=== PATIENT | female | born 1995 | race Caucasian/White ===

== ENCOUNTER 2016-05-18 15:57 | Inpatient (IN) | payer BC, SELFPAY ==
[~2016-05-18] VITALS: Ht 157.5 cm; Wt 66.3 kg
[~2016-05-18 15:57] MED LIST: ALBU17IN INH; HYDR25T PO; LAMI25TA PO; TRAZ25TA PO; ZOLO25TA PO
[2016-05-18 16:45] LABS: MEAN CORPUSCULAR HEMOGLOBIN 30.9 pg (27.0-33.0); MEAN CORPUSCULAR HGB CONC 34.7 g/dl (32.0-36.5); MEAN CORPUSCULAR VOLUME 89.1 fl (80.0-96.0); RED CELL DISTRIBUTION WIDTH 12.5 % (11.5-14.5); WHITE BLOOD COUNT 6.7 K/mm3 (4.0-10.0)
[2016-05-18 16:58] LABS: CONTROL LINE INT CTR LINE PRESENT; METHADONE URINE NEGATIVE (NEGATIVE); TRICYCLIC ANTIDEPRESS URINE NEGATIVE (NEGATIVE)
[2016-05-18 17:02] LABS: CONTROL LINE HCG INT CTR LINE PRESENT
[2016-05-18 17:17] LABS: ALBUMIN 4.1 GM/DL (3.2-5.2); ALBUMIN/GLOBULIN RATIO 1.37 (1.00-1.93); ALKALINE PHOSPHATASE 64 U/L (45-117); ALT/SGPT 19 U/L (12-78); ANION GAP 12 MEQ/L (8-16); AST/SGOT 16 U/L (15-37); BILIRUBIN,DIRECT 0.3 MG/DL (0.0-0.2); BILIRUBIN,TOTAL 1.3 MG/DL (0.2-1.0); BLOOD UREA NITROGEN 11 MG/DL (7-18); CALCIUM LEVEL 8.7 MG/DL (8.5-10.1); CARBON DIOXIDE LEVEL 20 MEQ/L (21-32); CHLORIDE LEVEL 109 MEQ/L (98-107); CREATININE FOR GFR 0.71 MG/DL (0.55-1.02); GLOMERULAR FILTRATION RATE > 60.0 (>60); GLUCOSE, FASTING 91 MG/DL (70-105); POTASSIUM SERUM 3.6 MEQ/L (3.5-5.1); SODIUM LEVEL 141 MEQ/L (136-145); TOTAL PROTEIN 7.1 GM/DL (6.4-8.2)
[2016-05-18] MEDS ORDERED: LEXA5TAB13 PO (19:42)
[2016-05-18] MEDS ORDERED: LAMI25TA PO (19:42)
[2016-05-18] MEDS ORDERED: LAMI1TAB7 PO (19:42)
[2016-05-18] MEDS ORDERED: REME15TA PO (19:42)
--- NOTE | 2016-05-18 19:51 | EDDOCDS ---
Nurse's Notes [facility] Name: Aisha De Leon Age: 20 yrs Sex: Female : 1995 Arrival Date: 05/18/2016 Time: 15:[address] MD: Kasey Desai Diagnosis: Bipolar disorder, current episode depressed, moderate;Suicidal ideations;Patient's noncompliance with medical treatment and regimen;Other stimulant abuse;Opioid abuse;Cannabis abuse Presentation: 05/18 16:02 Presenting complaint: Patient states: patt been crying constantly and been in bed for 4 srm days. body physically exhausted. admits to SI but no plan. Mental Health Triage Level: Level 2:. Adult Sepsis Screening: The patient does not have new or worsening altered mentation. Patient's respiratory rate is less than 22. Systolic blood pressure is greater than 100. Patient has a qSOFA score of 0- Negative Sepsis Screen. Suicide/Homicide risk assessment- The patient admits to and/or has been reported to be having suicidal ideations. The patient reports that he/she has not been admitted to an inpatient mental health facility in the last 30 days. The patient reports that he/she has a recent or current history of substance abuse. The patient reports that he/she has a prior history of suicide attempt and/or organized plan. The patient reports that he/she has experienced a significant life altering event in the last 30 days. The patient reports that he/she has adequate social support. Status: Patient is not a fiscal services manager or dependent. Transition of care: patient was not received from another setting of care. 16:02 Acuity: MORENA Level 3 srm 16:02 Method Of Arrival: Walkin/Carried/Asstd srm Triage Assessment: 16:07 General: Appears in no apparent distress, Behavior is appropriate for age, cooperative. srm Pain: Pain currently is 0 out of 10 on a pain scale. HIV screening NA for this visit Offered previously. 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 Lamictal 50mg in am and 100 mg at hs Oral TChD 2 times per day 2. albuterol sulfate 90 mcg/actuation Inhl aepb prn - PMHx: Asthma; Depression; biploar; - PSHx: plastic surgery to correct facial laceration; Tonsillectomy; Adenoidectomy; - The history from nurses notes was reviewed: and I agree with what is documented. - Social history: Smoking status: Patient uses tobacco products, current every day smoker. No barriers to communication noted, The patient speaks fluent [place], Speaks appropriately for age. - Family history: Not pertinent. - : The pt / caregiver states he / she is not on anticoagulants. Home medication list is obtained from the patient. - Hospitalizations: : No recent hospitalization is reported. - Exposure Risk Screening:: None identified. - Immunization history:: All immunizations up-to-date. - Social history:: the patient smokes cigarettes the patient drinks alcohol, including recently. Screenin:47 Screening information is obtained from the patient. Fall risk: No risks identified. mk4 Assistance ADL's: requires no assistance with activities of daily living. Abuse/DV Screen: The patient / caregiver reports he/she is: not in a situation that causes fear, pain or injury. Nutritional screening: No deficits noted. Advance Directives: Currently, there is no health care proxy. There is no active DNR order. There is no living will. There is no Power of Kerrick Kleaner Operator. Advance directive information has not previously been placed in an [facility] medical record. Further advance directive information is declined. home support is adequate. Assessment: 16:16 General: Appears in no apparent distress, Behavior is cooperative, pleasant, family mk4 members in room with pt , laughing and joking. 17:20 General: Appears in no apparent distress, Behavior is cooperative, friends in room with mk4 pt, laughing and joking in NAD. 18:47 General: Appears in no apparent distress, comfortable, Behavior is cooperative. mk4 General: dinner tray given. Pain: Denies pain. Neurological: Level of Consciousness is awake, alert. Respiratory: Airway is patent Respiratory effort is even, unlabored, Respiratory pattern is regular, Breath sounds are clear bilaterally. 19:48 Reassessment: Patient appears in no apparent distress at this time. Patient denies pain rw1 at this time. Mental Health Eval: 17:59 Mental health consult is initiated at 17:45. Status: The patient is not a fiscal services manager or dependent. [facility] Behavioral Health: The patient is not an established patient of [facility] Behavioral Health. Referral Information: Evaluation referral is generated by a relative; Cousin; Tee Frazier The patient was referred for evaluation because Pt presented to ED after +SI by smashing her car. Pt stated Quit her job (at [employer]) 2 weeks ago and lost her insurance. Pt missed her apt in Apr for medication refill. Pt reported in bed for the last 3 days, "crying hysterically for no reason", "Entire body is so exhausted". according to Pt, had an argument with BF today, left the house, feeling trapped. Thought of smashing her car as a SI attempt, but went to Cousin's house instead. Cousin brought Pt to [facility]. Cousin has Pt's car. Pt reported hx of cutting, stated has not cut since high school. Pt stated sleeps all the time, has lost interest in life, and continues to think +SI.. Subjective: The patients chief complaint is +SI with plan to smash car. . Delusions are denied. Patient's mood is dysphoric, hopeless, Hallucinations are denied. Mental Health history: anxiety, depression, suicide attempt by overdose, 10/2015 Mental Health Admissions: [facility], 10/2015, overdose Current Outpatient Mental Health Services: Psychiatrist / Agency: Janeen JENSEN for medication management. Missed last apt in April, has not rescheduled do to no insurance currently. . Therapist / Agency: Usha JENSEN, last seen in Mar 2016.. Current living environment is The patient currently lives with his / her significant other, of 3 years, and 2y/o Son.(currently with Grandparents).. Patient presents to Emergency Department with the following symptoms within the past 2 weeks: anxiety, depressed mood, drug abuse, feelings of helplessness/hopelessness, labile mood, poor impulse control, sleep disturbance - excessive sleeping, suicidal ideation with plan for motor vehicle crash. Substance abuse: Patient uses marijuana as needed to relax Patient uses opiates Frequency of use: as needed to relax. Mental status exam: Patients appearance is disheveled Patient's behavior is cooperative, minimally responsive Speech is slow. Affect is flat. Mood is dysphoric. Hallucinations are denied. Appetite is poor. Memory is good. Energy level is lethargic. Content of thought is depressive. , Thought process is characterized by flight of ideas. Cognitive level is oriented to person, place, time and situation Patient's insight is poor. Judgement is poor. Rapport with interviewer is good. Suicidal Ideation present with a plan to kill self by motor vehicle crash. Homicidal ideation is not present. Disposition: Medically cleared for disposition by Gio León MD. 18:26 Pt states preferred pharmacy is: [facility]. rb 18:55 Disposition: Psychiatric Consult is performed by phone with Dr Christopher Kimble. [facility] rb Admission Criteria: The patient is experiencing suicidal ideation. The patient displays symptoms of severe psychiatric disorder resulting in disordered behavior and significant interference with his / her ability to maintain self care. Severe Anxiety. Psychomotor Retardation. The patient requires continuous observation and/or control to protect self, others or property. The patient requires administration and monitoring of psychoactive medications by skilled medical providers due to the side effects of the psychoactive medications or significant dosage adjustments. Legal Status: Patient's legal status will be Emergency admission: . 19:28 Awaiting: transfer to [facility]. ms 19:33 Insurance Pre-Certification: Pt. reports she does not have insurance.. ms Vital Signs: 15:59 BP 129 / 76; Pulse 122; Resp 18 S; Temp 96.5(O); Pulse Ox 99% on R/A; Weight 62.6 kg gr2 (R); Height 5 ft. 2 in. (157.48 cm) (R); Pain 0/10; 18:50 BP 142 / 77; Pulse 86; Resp 18; Temp 97.0(T); Pulse Ox 99% on R/A; dpm 19:48 BP 114 / 71; Pulse 88; Resp 16; Temp 96.9(T); Pulse Ox 98% on R/A; Pain 0/10; rw1 15:59 Body Mass Index 25.24 (62.60 kg, 157.48 cm) gr2 Vitals: 15:59 Log In Time: May 18, 2016 at 15:59. RN notified that patient meets Red Flag gr2 criteria. ED Course: 15:58 Patient visited by Mayra Dunlap. gr2 15:58 Kasey Desai is Private Physician. gr2 15:58 Patient moved to Waiting gr2 16:01 Patient visited by Mayra Dunlap. gr2 16:03 Triage Initiated srm 16:08 Lang Yan, EVE is Primary Nurse. dpm 16:08 Patient moved to [facility] dpm 16:12 Gio León MD is Attending Physician. pc 16:24 Patient visited by Ehsan Nunez. dpm 16:25 Pt greeted and oriented to ED. Patient advised of names of staff involved in care, dpm location of call gaviria, wait times and NPO status. Patient has correct armband on for positive identification. Placed in gown. Placed in psych safe attire. Security observing. Property removed, inventory done, secured in belongings bag- placed in locked locker. Placed in locker 2. Ann Marie (RN) observed pt while changing. Psych Safety Check: Location: Psych Room. Visual Assessment: Cooperative. 16:35 Patient visited by Gio León MD. pc 16:37 Acetaminophen Level Sent. jam1 16:38 Basic Metabolic Profile Sent. jam1 16:38 Complete Blood Count Sent. jam1 16:38 Drug Eval Toxicology ED Only Sent. jam1 16:38 Ethyl Alcohol (ethanol) Sent. jam1 16:38 HCG,Serum Qualitative Sent. jam1 16:38 Liver Profile Sent. jam1 16:38 Salicylate Level Sent. jam1 16:46 [facility] Agreement was scanned into [facility] and attached to record. ks16 16:49 Patient visited by Ehsan Nunez. dpm 17:19 Patient visited by Ehsan Nunez. dpm 17:38 Patient visited by Ehsan Nunez. dpm 17:52 Patient visited by Ehsan Nunez. dpm 18:15 Patient visited by Ehsan Nunez. dpm 18:31 Patient visited by Ehsan Nunez. dpm 18:46 Patient visited by Ehsan Nunez. dpm 18:47 The patient / caregiver is instructed regarding the plan of care and ED course. mk4 18:47 No IV's were initiated during this patient's visit. No IV's were initiated during this mk4 patient's visit. No procedures done that require assistance. 18:54 Christopher Kimble is Hospitalizing Provider. pc 19:07 Patient visited by Ehsan Nunez. dpm 19:21 [facility] Legal paperwork was scanned into [facility] and attached to record. jl 19:27 Psych Safety Check: Location: Psych Room. Visual Assessment: Cooperative. tmm1 19:28 Patient visited by Jimena Garcia PCA. tmm1 19:47 Patient visited by Jimena Garcia PCA. tmm1 19:47 Psych Safety Check: Location: Psych Room. Visual Assessment: Cooperative. tmm1 Attachments: 19:21 [facility] Legal paperwork jl Order Results: Lab Order: Acetaminophen Level; SPEC'M 05/18/16 16:33 Test: ACETAMINOPHEN LEVEL; Value: < 2.0; Range: 10.0-30.0; Abnormal: Below low normal; Units: UG/ML; Status: F Lab Order: Basic Metabolic Profile; SPEC'M 05/18/16 16:33 Test: GLUCOSE, FASTING; Value: 91; Range: 70-105; Units: MG/DL; Status: F Test: BLOOD UREA NITROGEN; Value: 11; Range: 7-18; Units: MG/DL; Status: F Test: CREATININE FOR GFR; Value: 0.71; Range: 0.55-1.02; Units: MG/DL; Status: F Test: SODIUM LEVEL; Range: 136-145; Units: MEQ/L; Status: I Test: POTASSIUM SERUM; Range: 3.5-5.1; Units: MEQ/L; Status: I Test: CHLORIDE LEVEL; Range: 98-107; Units: MEQ/L; Status: I Test: CARBON DIOXIDE LEVEL; Range: 21-32; Units: MEQ/L; Status: I Test: ANION GAP; Range: 8-16; Units: MEQ/L; Status: I Test: CALCIUM LEVEL; Range: 8.5-10.1; Units: MG/DL; Status: I Test: GLOMERULAR FILTRATION RATE; Value: > 60.0; Range: >60; Status: F Test: SODIUM LEVEL; Value: 141; Range: 136-145; Units: MEQ/L; Status: F Test: POTASSIUM SERUM; Value: 3.6; Range: 3.5-5.1; Units: MEQ/L; Status: F Test: CHLORIDE LEVEL; Value: 109; Range: 98-107; Abnormal: Above high normal; Units: MEQ/L; Status: F Test: CARBON DIOXIDE LEVEL; Value: 20; Range: 21-32; Abnormal: Below low normal; Units: MEQ/L; Status: F Test: ANION GAP; Value: 12; Range: 8-16; Units: MEQ/L; Status: F Test: CALCIUM LEVEL; Value: 8.7; Range: 8.5-10.1; Units: MG/DL; Status: F Test Note: ; Units are mL/min/1.73 m2 Chronic Kidney Disease Staging per NKF: Stage I & II GFR >=60 Normal to Mildly Decreased Stage III GFR 30-59 Moderately Decreased Stage IV GFR 15-29 Severely Decreased Stage V GFR <15 Very Little GFR Left ESRD GFR <15 on SCHOOL PHOTOGRAPHER Lab Order: Complete Blood Count; SPEC'M 05/18/16 16:33 Test: WHITE BLOOD COUNT; Value: 6.7; Range: 4.0-10.0; Units: K/mm3; Status: F Test: RED BLOOD COUNT; Value: 4.82; Range: 4.00-5.40; Units: M/mm3; Status: F Test: HEMOGLOBIN; Value: 14.9; Range: 12.0-16.0; Units: g/dl; Status: F Test: HEMATOCRIT; Value: 43.0; Range: 36.0-47.0; Units: %; Status: F Test: MEAN CORPUSCULAR VOLUME; Value: 89.1; Range: 80.0-96.0; Units: fl; Status: F Test: MEAN CORPUSCULAR HEMOGLOBIN; Value: 30.9; Range: 27.0-33.0; Units: pg; Status: F Test: MEAN CORPUSCULAR HGB CONC; Value: 34.7; Range: 32.0-36.5; Units: g/dl; Status: F Test: RED CELL DISTRIBUTION WIDTH; Value: 12.5; Range: 11.5-14.5; Units: %; Status: F Test: PLATELET COUNT, AUTOMATED; Value: 321; Range: 150-450; Units: k/mm3; Status: F Lab Order: Drug Eval Toxicology ED Only; SPEC'M 05/18/16 16:29 Test: AMPHETAMINES LEVEL URINE; Value: POSITIVE; Range: NEGATIVE; Abnormal: Above high normal; Status: F Test: BARBITURATES URINE; Value: NEGATIVE; Range: NEGATIVE; Status: F Test: BENZODIAZEPINES URINE; Value: NEGATIVE; Range: NEGATIVE; Status: F Test: CANNABINOIDS URINE; Value: POSITIVE; Range: NEGATIVE; Abnormal: Above high normal; Status: F Test: COCAINE METABOLITE URINE; Value: NEGATIVE; Range: NEGATIVE; Status: F Test: METHADONE URINE; Value: NEGATIVE; Range: NEGATIVE; Status: F Test: OPIATES URINE; Value: POSITIVE; Range: NEGATIVE; Abnormal: Above high normal; Status: F Test: TRICYCLIC ANTIDEPRESS URINE; Value: NEGATIVE; Range: NEGATIVE; Status: F Test Note: ; FALSE POSITIVE RESULTS CAN BE CAUSED BY THE USE OF PANTOPRAZOLE (PROTONIX). Lab Order: Ethyl Alcohol (ethanol); [facility] 05/18/16 16:33 Test: ETHYL ALCOHOL (ETHANOL); Value: 0.024; Range: 0.000-0.010; Abnormal: Above high normal; Units: %; Status: F Lab Order: HCG,Serum Qualitative; [facility] 05/18/16 16:33 Test: HCG, SERUM QUALITATIVE; Value: NEGATIVE; Range: NEGATIVE; Status: F Lab Order: Liver Profile; [facility] 05/18/16 16:33 Test: AST/SGOT; Value: 16; Range: 15-37; Units: U/L; Status: F Test: ALT/SGPT; Value: 19; Range: 12-78; Units: U/L; Status: F Test: ALKALINE PHOSPHATASE; Value: 64; Range: 45-117; Units: U/L; Status: F Test: BILIRUBIN,TOTAL; Value: 1.3; Range: 0.2-1.0; Abnormal: Above high normal; Units: MG/DL; Status: F Test: BILIRUBIN,DIRECT; Value: 0.3; Range: 0.0-0.2; Abnormal: Above high normal; Units: MG/DL; Status: F Test: TOTAL PROTEIN; Value: 7.1; Range: 6.4-8.2; Units: GM/DL; Status: F Test: ALBUMIN; Value: 4.1; Range: 3.2-5.2; Units: GM/DL; Status: F Test: ALBUMIN/GLOBULIN RATIO; Value: 1.37; Range: 1.00-1.93; Status: F Lab Order: Salicylate Level; [facility] 05/18/16 16:33 Test: SALICYLATE LEVEL; Value: < 1.7; Range: 5.0-30.0; Abnormal: Below low normal; Units: MG/DL; Status: F Lab Order: Thyroid Stimulating Hormone; SPEC'M 05/18/16 16:33 Test: THYROID STIMULATING HORMONE; Value: 0.626; Range: 0.358-3.740; Units: uIU/ML; Status: F Outcome: 18:54 Decision to Hospitalize by Provider. pc 19:48 Discharge Assessment: Patient awake, alert and oriented x 3. No cognitive and/or rw1 functional deficits noted. Patient verbalized understanding of disposition instructions. patient administered narcotics - no. The following High Risk Discharge criteria are identified: Admitted to Psych accompanied by tech, via wheelchair, with chart. Condition: stable. No special radiology studies were completed. 19:50 Patient left the ED. rw1 Signatures: Gio León MD MD pc Michelson, Staci, RN RN srm Steffen Magalie, DOMESTIC FREIGHT FORWARDER DOMESTIC FREIGHT FORWARDER jam1 Anibal, Jia, PSA PSA rb Jonn, William, PSA PSA jl Abril Arora, PSA PSA ms Bruno Yanez,CLAIM REPRESENTATIVE CLAIM REPRESENTATIVE rw1 Ehsan Nunez dpJimena Serna, DOMESTIC FREIGHT FORWARDER DOMESTIC FREIGHT FORWARDER tmm1 Mayra Dunlap gr2 Constance Palm RN RN [email or web address] Kaur Hernández, Reg Reg ks16 MTDD
--- NOTE | 2016-05-18 19:51 | EDDOCDS ---
Physician Documentation [facility] Name: Aisha De Leon Age: 20 yrs Sex: Female : 1995 Arrival Date: 05/18/2016 Time: 15:57 Bed U2 Private MD: Kasey Desai Disposition: 05/18 18:53 Critical Care: Critical care not applicable. pc Disposition: 05/18/16 18:54 Hospitalization ordered by Christopher Kimble for Inpatient Admission. Preliminary diagnosis are Bipolar disorder, current episode depressed, moderate, Suicidal ideations, Patient's noncompliance with medical treatment and regimen, Other stimulant abuse, Opioid abuse, Cannabis abuse. - Bed requested for Admit. - Status is Inpatient Admission. rw1 - Condition is Stable. - Problem is new. - Symptoms are unchanged. HPI: 16:21 This 20 yrs old Female presents to ER via Walkin/Carried/Asstd with pc complaints of Psych Problem. 16:21 The history is obtained from the patient. The patient presents to the emergency pc department with suicidal ideation, depression, a history of substance abuse. At their worst, the symptoms were mild. In the emergency department, the symptoms are unchanged. 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 She has been having SI and states she wanted to come in today "to get balanced, before I do something bad.". 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 The patient has experienced similar episodes in the past, several times. The patient has not recently seen a physician. Historical: - Allergies: Benadryl; Zyrtec; - Home Meds: 1. Lamictal 50mg in am and 100 mg at hs Oral TChD 2 times per day 2. albuterol sulfate 90 mcg/actuation Inhl aepb prn - PMHx: Asthma; Depression; biploar; - PSHx: plastic surgery to correct facial laceration; Tonsillectomy; Adenoidectomy; - The history from nurses notes was reviewed: and I agree with what is documented. - Social history: Smoking status: Patient uses tobacco products, current every day smoker. No barriers to communication noted, The patient speaks fluent Yi, Speaks appropriately for age. - Family history: Not pertinent. - : The pt / caregiver states he / she is not on anticoagulants. Home medication list is obtained from the patient. - Hospitalizations: : No recent hospitalization is reported. - Exposure Risk Screening:: None identified. - Immunization history:: All immunizations up-to-date. - Social history:: the patient smokes cigarettes the patient drinks alcohol, including recently. 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 The psychiatric and neurological components pc are also addressed in the HPI. Exam: 16:21 General Appearance: alert, no acute distress, strong odor of alcohol. pc 16:21 ENT: ear, nose and throat normal, pharynx normal, prior facial surgical scars. 16:21 Eyes: pupils equal, round and reactive to light, extraocular motions intact. 16:21 Neck: The exam reveals no acute abnormalities. ROM is normal and painless. No nuchal rigidity is noted.. 16:21 Respiratory: breathing is even and unlabored, breath sounds are normal. 16:21 Cardiovascular: regular pulse rate, regular heart rhythm, normal heart sounds, equal and full pulses bilaterally. 16:21 Abdomen: soft, non-tender, no organomegaly, normal bowel sounds. 16:21 Skin: skin color is normal, warm, dry. 16:21 Extremities: The extremities have a grossly normal appearance, are non-tender, without acute ROM abnormalities. 16:21 Neuro: alert, oriented to person, place and time, cranial nerves normal as tested, no motor deficits, no sensory deficits. 16:21 Psych: mood is depressed, affect is flat. Vital Signs: 15:59 BP 129 / 76; Pulse 122; Resp 18 S; Temp 96.5(O); Pulse Ox 99% on R/A; Weight 62.6 kg / gr2 138.01 lbs (R); Height 5 ft. 2 in. (157.48 cm) (R); Pain 0/10; 18:50 BP 142 / 77; Pulse 86; Resp 18; Temp 97.0(T); Pulse Ox 99% on R/A; dpm 19:48 BP 114 / 71; Pulse 88; Resp 16; Temp 96.9(T); Pulse Ox 98% on R/A; Pain 0/10; rw1 15:59 Body Mass Index 25.24 (62.60 kg, 157.48 cm) gr2 MDM: 16:20 Consult PFS/PSA/Overlock Elastic Attacher: Patient's case requires discussion with on-call pc Psychiatrist ordered. 16:20 PSA/PFS to call Nursing Scratch Brusher, to enter patient data on [place] Safe Act if patient pc involuntarily admitted or transferred for SI or HI ordered. 16:20 Confirm accurate psychiatric medication list and times of last dosage ordered. pc 16:20 Detain Pt Until Medically/PFS Cleared ordered. pc 16:21 Differential diagnosis: depression, suicidal ideation, alcohol intoxication. Plan: pc labs, PFS eval. 16:22 Acetaminophen Level Ordered. EDMS 16:22 Basic Metabolic Profile Ordered. EDMS 16:22 Complete Blood Count Ordered. EDMS 16:22 Drug Eval Toxicology ED Only Ordered. EDMS 16:22 Ethyl Alcohol (ethanol) Ordered. EDMS 16:22 HCG,Serum Qualitative Ordered. EDMS 16:22 Liver Profile Ordered. EDMS 16:22 Salicylate Level Ordered. EDMS 16:22 Thyroid Stimulating Hormone Ordered. EDMS 16:37 Consult PFS/PSA/Overlock Elastic Attacher: Patient's case requires discussion with on-call 4 Psychiatrist complete. 16:37 PSA/PFS to call Nursing Scratch Brusher, to enter patient data on [place] Safe [place] if patient mk4 involuntarily admitted or transferred for SI or HI complete. 16:44 REGULAR DIET PLASTIC FLORES+DIET ordered. EDMS 16:45 Financial registration complete. [email or web address] 16:46 [facility] Payment Agreement was scanned into [employer] and attached to record. [email or web address] 17:05 Drug Eval Toxicology ED Only Reviewed. pc 17:05 Complete Blood Count Reviewed. pc 17:05 HCG,Serum Qualitative Reviewed. pc 17:06 Acetaminophen Level Reviewed. pc 17:06 Basic Metabolic Profile Reviewed. pc 17:06 Ethyl Alcohol (ethanol) Reviewed. pc 17:06 Liver Profile Reviewed. pc 17:06 Salicylate Level Reviewed. pc 17:06 Thyroid Stimulating Hormone Reviewed. pc 17:22 Acetaminophen Level Reviewed. pc 17:22 Basic Metabolic Profile Reviewed. pc 17:22 Ethyl Alcohol (ethanol) Reviewed. pc 17:22 Liver Profile Reviewed. pc 17:22 Salicylate Level Reviewed. pc 17:22 HCG,Serum Qualitative Reviewed. pc 17:22 Thyroid Stimulating Hormone Reviewed. pc 18:53 The patient has been medically cleared for psychiatric evaluation, admission and/or pc transfer. [place] Safe Act reporting: The patient poses a significant risk to self or others, and PSA/PFS has notified the Nursing Scratch Brusher and he/she will complete the required data architect. Data reviewed: old medical records, vital signs, nurses notes, lab test results. Test interpretation: LAB - all labs as ordered have been reviewed, interpreted and considered in the overall management of the clinical presentation;. The patient has been re-examined and re-evaluated. There is no appreciated change of the patient's symptoms at this time. Disposition: The historical points, examination findings, and any diagnostic results supporting the provided diagnosis, were discussed with the patient or legal guardian. The need for further work-up and/or treatment in the hospital was explained. 19:19 Admit to [facility]: ordered. EDMS 19:21 E Legal paperwork was scanned into [employer] and attached to record. jl Signatures: Dispatcher [employer] EDNV Gio León MD MD pc Michelson, Staci, RN RN [facility] Jonn, William, PSA PSA Bruno Rajan,AUTOMOBILE SERVICE STATION MANAGER AUTOMOBILE SERVICE STATION MANAGER rw1 Constance Palm RN RN 4 Kaur Hernández, Reg Reg [email or web address] The chart was reviewed and I authenticate all verbal orders and agree with the evaluation and treatment provided.Attachments: 16:46 [facility] Payment Agreement [email or web address] MTDD
[2016-05-18 20:06] VITALS: BP 106/61
[2016-05-18] MEDS ORDERED: lamoTRIgine 25 MG TAB PO SCH (21:00)
[2016-05-18] MEDS ORDERED: MOM 30ML SUSPENSION UDC PO PRN (22:30)
[2016-05-18] MEDS ORDERED: ACETAMINOPHEN TAB 650MG DOSE (2X325MG) PO PRN (22:30)
[2016-05-18] MEDS ORDERED: MAALOX 30 ML SUSP *UDC PO PRN (22:30)
[2016-05-18] MEDS ORDERED: LORazepam 1 MG TAB PO PRN (22:30)
[2016-05-18] MEDS: MIRTAZAPINE 15 MG TAB PO PRN (22:47)
[2016-05-19 06:52] VITALS: BP 101/55
[2016-05-19 11:16] VITALS: BP 121/59
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
[2016-05-19] MEDS ORDERED: ALBUTEROL 90 MCG/ACT 8GM HFA INHALER INH PRN (12:00)
[2016-05-19] MEDS ORDERED: OLANZapine ORAL DISINTEGRATING TAB 5MG PO PRN (12:15)
[2016-05-19] MEDS: lamoTRIgine 25 MG TAB PO SCH ×2 (12:35→21:06)
[2016-05-19] MEDS: NICOTINE 7 MG/24 HR TRANSDERMAL TD SCH (12:38)
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
--- NOTE | 2016-05-19 17:06 | ECGEPIP ---
Stationary ECG Study [facility] Test Date: 2016-05-19 Pat Name: SYEDA ROSARIO Department: Room: [place] [address] Gender: F Skip Miner: : 1995 Requested By: Sharla Saravia Order Number: [id number] Reading MD: Rommel Olea Measurements Intervals [place] Rate: 65 P: 0 WV: 121 QRS: 71 QRSD: 97 T: 41 QT: 403 QTc: 420 Interpretive Statements SINUS RHYTHM WITH MARKED SINUS ARRHYTHMIA, Otherwise within normal limits. Increased heart rate compared with 11/02/2015. Electronically Signed On 05-19-2016 16:53:07 EST by Rommel Olea
[2016-05-19 18:00] VITALS: BP 118/51
[2016-05-19] MEDS: MIRTAZAPINE 15 MG TAB PO PRN (21:06)
[2016-05-20 06:34] VITALS: BP 101/50
[2016-05-20] MEDS: NICOTINE 7 MG/24 HR TRANSDERMAL TD SCH (09:00)
[2016-05-20] MEDS: lamoTRIgine 25 MG TAB PO SCH ×2 (09:14→21:14)
[2016-05-20 18:30] VITALS: BP 104/50
--- NOTE | 2016-05-20 20:13 | IPNPDOC ---
[facility] Progress Note Progress Note DATE OF SERVICE: 05/20/16 Subjective: Patient is calm and cooperative and engaged in the interview. Patient reports increasing mood since admission. Patient requests clothes from home. She denies SI/HI and AH/VH. Patient reports fair sleep and appetite. Patient reports med compliance and denies med s/e's. Objective: VITALS: wnl MENTAL STATUS EXAMINATION: Patient looks stated age, in NAD, calm and cooperative. Has good eye contact. requests clothes from home. Speech RRR. Mood is euthymic Affect is broad. No delusions or hallucinations noted. Memory is fair. The patient is fully oriented. Associations are intact. Thinking is linear. Thought content is appropriate. Patient denies suicidal or homicidal ideation during the interview. Insight and judgment are fair. ASSESSMENT: 1. Bipolar d/o, unspecified 2. Amphetamine use d/o. 3. Opioid use d/o. 4. Cannabis use d/o. PLAN: 1. Continue close observation. 2. Continue current psychotropic med regimen. 3. Continue with individual and group therapy. Time spent: 30 minutes Vital Signs Vital Signs Date Time Temp Pulse Resp B/P Pulse Ox O2 Delivery O2 Flow Rate FiO2 05/20/16 18:30 97.5 79 16 104/50 05/18/16 20:06 98 Room Air Current Medications Current Medications Acetaminophen (Tylenol Tab) 650 mg Q6HP PRN PO HEADACHE or DISCOMFORT; Start at 22:30; Stop 06/17/16 at 22:29 Al Hydrox/Mg Hydrox/Simethicone (Mylanta) 30 ml Q4HP PRN PO HEARTBURN/ INDIGESTION; Start 05/18/16 at 22:30; Stop 06/17/16 at 22:29 Albuterol Sulfate (Proventil, Ventolin Hfa) 2 puff Q4HP PRN INH SHORTNESS OF BREATH; Start 05/19/16 at 12:00; Stop 06/18/16 at 11:59 Home Med (Med Rec Complete!) ASDIRECTED XX ; Start 05/18/16 at 19:45; Stop at 19:54; Status DC Lamotrigine (LaMICtal) 50 mg BID PO Last administered on 05/20/16t 09:14; Start 05/19/16 at 09:00; Stop 06/18/16 at 08:59 Lamotrigine (LaMICtal) 50 mg QHS PO Last administered on 05/18/16 22:47; Start 05/18/16 at 21:00; Stop 05/19/16 at 12:14; Status DC Lorazepam (Ativan) 1 mg Q4HP PRN PO ANXIETY/AGITATION; Start 05/18/16 at 22:30 ; Stop 05/19/16 at 12:15; Status DC Magnesium Hydroxide (Milk Of Magnesia) 30 ml DAILYPRN PRN PO CONSTIPATION; Start 05/18/16 at 22:30; Stop 06/17/16 at 22:29 Mirtazapine (Remeron) 7.5 mg QHSP PRN PO INSOMNIA; Start 05/20/16 at 17:15; Stop 06/19/16 at 17:14 Mirtazapine (Remeron) 15 mg QHSP PRN PO INSOMNIA Last administered on 21:06; Start 05/18/16 at 22:30; Stop 05/20/16 at 17:03; Status DC Nicotine (Nicoderm Cq 7 Mg) 1 patch DAILY TD ; Start 05/19/16 at 09:00; Stop at 08:59 Olanzapine (ZyPREXA ZYDIS) 5 mg Q6HP PRN PO ANXIETY/AGITATION; Start at 12:15; Stop 06/18/16 at 12:14 Allergies Coded Allergies: Cetirizine (Unverified Allergy, Intermediate, HIVES, 11/09/15) Diphenhydramine (Unverified Allergy, Intermediate, HIVES, 11/09/15) ALTON POSADA MD May 20, 2016 20:13 at 08:59 Olanzapine (ZyPREXA ZYDIS) 5 mg Q6HP PRN PO ANXIETY/AGITATION; Start at 12:15; Stop 06/18/16 at 12:14 Allergies Coded Allergies: Cetirizine (Unverified Allergy, Intermediate, HIVES, 11/09/15) Diphenhydramine (Unverified Allergy, Intermediate, HIVES, 11/09/15) ALTON POSADA MD May 20, 2016 20:13
--- NOTE | 2016-05-20 20:52 | EDDOCDS ---
Physician Documentation [facility] Name: Aisha De Leon Age: 20 yrs Sex: Female : 1995 Arrival Date: 05/18/2016 Time: 15:57 Bed U2 Private MD: Kasey Desai Disposition: 05/18 18:53 Critical Care: Critical care not applicable. pc Disposition: 05/18/16 18:54 Hospitalization ordered by Christopher Kimble for Inpatient Admission. Preliminary diagnosis are Bipolar disorder, current episode depressed, moderate, Suicidal ideations, Patient's noncompliance with medical treatment and regimen, Other stimulant abuse, Opioid abuse, Cannabis abuse. - Bed requested for Admit. - Status is Inpatient Admission. rw1 - Condition is Stable. - Problem is new. - Symptoms are unchanged. HPI: 16:21 This 20 yrs old Female presents to ER via Walkin/Carried/Asstd with pc complaints of Psych Problem. 16:21 The history is obtained from the patient. The patient presents to the emergency pc department with suicidal ideation, depression, a history of substance abuse. At their worst, the symptoms were mild. In the emergency department, the symptoms are unchanged. 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 She has been having SI and states she wanted to come in today "to get balanced, before I do something bad.". 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 The patient has experienced similar episodes in the past, several times. The patient has not recently seen a physician. Historical: - Allergies: Benadryl; Zyrtec; - Home Meds: 1. Lamictal 50mg in am and 100 mg at hs Oral TChD 2 times per day 2. albuterol sulfate 90 mcg/actuation Inhl aepb prn - PMHx: Asthma; Depression; biploar; - PSHx: plastic surgery to correct facial laceration; Tonsillectomy; Adenoidectomy; - The history from nurses notes was reviewed: and I agree with what is documented. - Social history: Smoking status: Patient uses tobacco products, current every day smoker. No barriers to communication noted, The patient speaks fluent Frisian, Speaks appropriately for age. - Family history: Not pertinent. - : The pt / caregiver states he / she is not on anticoagulants. Home medication list is obtained from the patient. - Hospitalizations: : No recent hospitalization is reported. - Exposure Risk Screening:: None identified. - Immunization history:: All immunizations up-to-date. - Social history:: the patient smokes cigarettes the patient drinks alcohol, including recently. STOCK CUTTER: 16:07 LMP 05/01/2016 srm ROS: 16:21 All systems are negative except as listed. The psychiatric and neurological components pc are also addressed in the HPI. Exam: 16:21 General Appearance: alert, no acute distress, strong odor of alcohol. pc 16:21 ENT: ear, nose and throat normal, pharynx normal, prior facial surgical scars. 16:21 Eyes: pupils equal, round and reactive to light, extraocular motions intact. 16:21 Neck: The exam reveals no acute abnormalities. ROM is normal and painless. No nuchal rigidity is noted.. 16:21 Respiratory: breathing is even and unlabored, breath sounds are normal. 16:21 Cardiovascular: regular pulse rate, regular heart rhythm, normal heart sounds, equal and full pulses bilaterally. 16:21 Abdomen: soft, non-tender, no organomegaly, normal bowel sounds. 16:21 Skin: skin color is normal, warm, dry. 16:21 Extremities: The extremities have a grossly normal appearance, are non-tender, without acute ROM abnormalities. 16:21 Neuro: alert, oriented to person, place and time, cranial nerves normal as tested, no motor deficits, no sensory deficits. 16:21 Psych: mood is depressed, affect is flat. Vital Signs: 15:59 BP 129 / 76; Pulse 122; Resp 18 S; Temp 96.5(O); Pulse Ox 99% on R/A; Weight 62.6 kg / gr2 138.01 lbs (R); Height 5 ft. 2 in. (157.48 cm) (R); Pain 0/10; 18:50 BP 142 / 77; Pulse 86; Resp 18; Temp 97.0(T); Pulse Ox 99% on R/A; dpm 19:48 BP 114 / 71; Pulse 88; Resp 16; Temp 96.9(T); Pulse Ox 98% on R/A; Pain 0/10; rw1 15:59 Body Mass Index 25.24 (62.60 kg, 157.48 cm) gr2 MDM: 16:20 Consult PFS/PSA/Flight Line Service Attendant: Patient's case requires discussion with on-call pc Psychiatrist ordered. 16:20 PSA/PFS to call Nursing Bellstand Attendant, to enter patient data on [place] if patient pc involuntarily admitted or transferred for SI or HI ordered. 16:20 Confirm accurate psychiatric medication list and times of last dosage ordered. pc 16:20 Detain Pt Until Medically/PFS Cleared ordered. pc 16:21 Differential diagnosis: depression, suicidal ideation, alcohol intoxication. Plan: pc labs, PFS eval. 16:22 Acetaminophen Level Ordered. EDMS 16:22 Basic Metabolic Profile Ordered. EDMS 16:22 Complete Blood Count Ordered. EDMS 16:22 Drug Eval Toxicology ED Only Ordered. EDMS 16:22 Ethyl Alcohol (ethanol) Ordered. EDMS 16:22 HCG,Serum Qualitative Ordered. EDMS 16:22 Liver Profile Ordered. EDMS 16:22 Salicylate Level Ordered. EDMS 16:22 Thyroid Stimulating Hormone Ordered. EDMS 16:37 Consult PFS/PSA/Flight Line Service Attendant: Patient's case requires discussion with on-call 4 Psychiatrist complete. 16:37 PSA/PFS to call Nursing Bellstand Attendant, to enter patient data [place] if patient mk4 involuntarily admitted or transferred for SI or HI complete. 16:44 REGULAR DIET PLASTIC FLORES+DIET ordered. EDMS 16:45 Financial registration complete. [email or web address] 16:46 [facility] Payment Agreement was scanned into [employer] and attached to record. [email or web address] 17:05 Drug Eval Toxicology ED Only Reviewed. pc 17:05 Complete Blood Count Reviewed. pc 17:05 HCG,Serum Qualitative Reviewed. pc 17:06 Acetaminophen Level Reviewed. pc 17:06 Basic Metabolic Profile Reviewed. pc 17:06 Ethyl Alcohol (ethanol) Reviewed. pc 17:06 Liver Profile Reviewed. pc 17:06 Salicylate Level Reviewed. pc 17:06 Thyroid Stimulating Hormone Reviewed. pc 17:22 Acetaminophen Level Reviewed. pc 17:22 Basic Metabolic Profile Reviewed. pc 17:22 Ethyl Alcohol (ethanol) Reviewed. pc 17:22 Liver Profile Reviewed. pc 17:22 Salicylate Level Reviewed. pc 17:22 HCG,Serum Qualitative Reviewed. pc 17:22 Thyroid Stimulating Hormone Reviewed. pc 18:53 The patient has been medically cleared for psychiatric evaluation, admission and/or pc transfer. [place] Safe [place] reporting: The patient poses a significant risk to self or others, and PSA/PFS has notified the Nursing Bellstand Attendant and he/she will complete the required big data lead. Data reviewed: old medical records, vital signs, nurses notes, lab test results. Test interpretation: LAB - all labs as ordered have been reviewed, interpreted and considered in the overall management of the clinical presentation;. The patient has been re-examined and re-evaluated. There is no appreciated change of the patient's symptoms at this time. Disposition: The historical points, examination findings, and any diagnostic results supporting the provided diagnosis, were discussed with the patient or legal guardian. The need for further work-up and/or treatment in the hospital was explained. 19:19 Admit to [facility]: ordered. EDMS 19:21 E Legal paperwork was scanned into [employer] and attached to record. jl Signatures: Dispatcher [employer] EDMO Gio León MD MD pc Michelson, Staci, RN RN [facility] Jonn, William, PSA PSA Bruno Rajan,BAG SEWER BAG SEWER rw1 Constance Palm RN RN 4 Kaur Hernández, Reg Reg [email or web address] The chart was reviewed and I authenticate all verbal orders and agree with the evaluation and treatment provided.Attachments: 16:46 [facility] Payment Agreement [email or web address] Chart Complete MTDD
--- NOTE | 2016-05-20 20:52 | EDDOCDS ---
Physician Documentation [facility] Name: Aisha De Leon Age: 20 yrs Sex: Female : 1995 Arrival Date: 05/18/2016 Time: 15:57 Bed U2 Private MD: Kasey Desai Disposition: 05/18 18:53 Critical Care: Critical care not applicable. pc Disposition: 05/18/16 18:54 Hospitalization ordered by Christopher Kimble for Inpatient Admission. Preliminary diagnosis are Bipolar disorder, current episode depressed, moderate, Suicidal ideations, Patient's noncompliance with medical treatment and regimen, Other stimulant abuse, Opioid abuse, Cannabis abuse. - Bed requested for Admit. - Status is Inpatient Admission. rw1 - Condition is Stable. - Problem is new. - Symptoms are unchanged. HPI: 16:21 This 20 yrs old Female presents to ER via Walkin/Carried/Asstd with pc complaints of Psych Problem. 16:21 The history is obtained from the patient. The patient presents to the emergency pc department with suicidal ideation, depression, a history of substance abuse. At their worst, the symptoms were mild. In the emergency department, the symptoms are unchanged. 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 She has been having SI and states she wanted to come in today "to get balanced, before I do something bad.". 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 The patient has experienced similar episodes in the past, several times. The patient has not recently seen a physician. Historical: - Allergies: Benadryl; Zyrtec; - Home Meds: 1. Lamictal 50mg in am and 100 mg at hs Oral TChD 2 times per day 2. albuterol sulfate 90 mcg/actuation Inhl aepb prn - PMHx: Asthma; Depression; biploar; - PSHx: plastic surgery to correct facial laceration; Tonsillectomy; Adenoidectomy; - The history from nurses notes was reviewed: and I agree with what is documented. - Social history: Smoking status: Patient uses tobacco products, current every day smoker. No barriers to communication noted, The patient speaks fluent Divehi, Speaks appropriately for age. - Family history: Not pertinent. - : The pt / caregiver states he / she is not on anticoagulants. Home medication list is obtained from the patient. - Hospitalizations: : No recent hospitalization is reported. - Exposure Risk Screening:: None identified. - Immunization history:: All immunizations up-to-date. - Social history:: the patient smokes cigarettes the patient drinks alcohol, including recently. NURSING SPECIALIST: 16:07 LMP 05/01/2016 srm ROS: 16:21 All systems are negative except as listed. The psychiatric and neurological components pc are also addressed in the HPI. Exam: 16:21 General Appearance: alert, no acute distress, strong odor of alcohol. pc 16:21 ENT: ear, nose and throat normal, pharynx normal, prior facial surgical scars. 16:21 Eyes: pupils equal, round and reactive to light, extraocular motions intact. 16:21 Neck: The exam reveals no acute abnormalities. ROM is normal and painless. No nuchal rigidity is noted.. 16:21 Respiratory: breathing is even and unlabored, breath sounds are normal. 16:21 Cardiovascular: regular pulse rate, regular heart rhythm, normal heart sounds, equal and full pulses bilaterally. 16:21 Abdomen: soft, non-tender, no organomegaly, normal bowel sounds. 16:21 Skin: skin color is normal, warm, dry. 16:21 Extremities: The extremities have a grossly normal appearance, are non-tender, without acute ROM abnormalities. 16:21 Neuro: alert, oriented to person, place and time, cranial nerves normal as tested, no motor deficits, no sensory deficits. 16:21 Psych: mood is depressed, affect is flat. Vital Signs: 15:59 BP 129 / 76; Pulse 122; Resp 18 S; Temp 96.5(O); Pulse Ox 99% on R/A; Weight 62.6 kg / gr2 138.01 lbs (R); Height 5 ft. 2 in. (157.48 cm) (R); Pain 0/10; 18:50 BP 142 / 77; Pulse 86; Resp 18; Temp 97.0(T); Pulse Ox 99% on R/A; dpm 19:48 BP 114 / 71; Pulse 88; Resp 16; Temp 96.9(T); Pulse Ox 98% on R/A; Pain 0/10; rw1 15:59 Body Mass Index 25.24 (62.60 kg, 157.48 cm) gr2 MDM: 16:20 Consult PFS/PSA/Supervisor Covering And Lining: Patient's case requires discussion with on-call pc Psychiatrist ordered. 16:20 PSA/PFS to call Nursing Blacksmith Supervisor, to enter patient data [place] if patient pc involuntarily admitted or transferred for SI or HI ordered. 16:20 Confirm accurate psychiatric medication list and times of last dosage ordered. pc 16:20 Detain Pt Until Medically/PFS Cleared ordered. pc 16:21 Differential diagnosis: depression, suicidal ideation, alcohol intoxication. Plan: pc labs, PFS eval. 16:22 Acetaminophen Level Ordered. EDMS 16:22 Basic Metabolic Profile Ordered. EDMS 16:22 Complete Blood Count Ordered. EDMS 16:22 Drug Eval Toxicology ED Only Ordered. EDMS 16:22 Ethyl Alcohol (ethanol) Ordered. EDMS 16:22 HCG,Serum Qualitative Ordered. EDMS 16:22 Liver Profile Ordered. EDMS 16:22 Salicylate Level Ordered. EDMS 16:22 Thyroid Stimulating Hormone Ordered. EDMS 16:37 Consult PFS/PSA/Supervisor Covering And Lining: Patient's case requires discussion with on-call 4 Psychiatrist complete. 16:37 PSA/PFS to call Nursing Blacksmith Supervisor, to enter patient data [place] if patient mk4 involuntarily admitted or transferred for SI or HI complete. 16:44 REGULAR DIET PLASTIC FLORES+DIET ordered. EDMS 16:45 Financial registration complete. [email or web address] 16:46 [facility] Payment Agreement was scanned into [employer] and attached to record. [email or web address] 17:05 Drug Eval Toxicology ED Only Reviewed. pc 17:05 Complete Blood Count Reviewed. pc 17:05 HCG,Serum Qualitative Reviewed. pc 17:06 Acetaminophen Level Reviewed. pc 17:06 Basic Metabolic Profile Reviewed. pc 17:06 Ethyl Alcohol (ethanol) Reviewed. pc 17:06 Liver Profile Reviewed. pc 17:06 Salicylate Level Reviewed. pc 17:06 Thyroid Stimulating Hormone Reviewed. pc 17:22 Acetaminophen Level Reviewed. pc 17:22 Basic Metabolic Profile Reviewed. pc 17:22 Ethyl Alcohol (ethanol) Reviewed. pc 17:22 Liver Profile Reviewed. pc 17:22 Salicylate Level Reviewed. pc 17:22 HCG,Serum Qualitative Reviewed. pc 17:22 Thyroid Stimulating Hormone Reviewed. pc 18:53 The patient has been medically cleared for psychiatric evaluation, admission and/or pc transfer. [place] Safe [place] reporting: The patient poses a significant risk to self or others, and PSA/PFS has notified the Nursing Blacksmith Supervisor and he/she will complete the required data center project manager. Data reviewed: old medical records, vital signs, nurses notes, lab test results. Test interpretation: LAB - all labs as ordered have been reviewed, interpreted and considered in the overall management of the clinical presentation;. The patient has been re-examined and re-evaluated. There is no appreciated change of the patient's symptoms at this time. Disposition: The historical points, examination findings, and any diagnostic results supporting the provided diagnosis, were discussed with the patient or legal guardian. The need for further work-up and/or treatment in the hospital was explained. 19:19 Admit to [facility]: ordered. EDMS 19:21 E Legal paperwork was scanned into [employer] and attached to record. jl Signatures: Dispatcher [employer] EDMA Gio León MD MD pc Michelson, Staci, RN RN [facility] Jonn, William, PSA PSA Bruno Rajan,DESIGN PRINTER BALLOON DESIGN PRINTER BALLOON rw1 Constance Palm RN RN 4 Kaur Hernández, Reg Reg [email or web address] The chart was reviewed and I authenticate all verbal orders and agree with the evaluation and treatment provided.Attachments: 16:46 [facility] Payment Agreement [email or web address] Chart Complete MTDD
--- NOTE | 2016-05-20 20:53 | EDDOCDS ---
Nurse's Notes [facility] Name: Aisha De Leon Age: 20 yrs Sex: Female : 1995 Arrival Date: 05/18/2016 Time: 15:[address] MD: Kasey Desai Diagnosis: Bipolar disorder, current episode depressed, moderate;Suicidal ideations;Patient's noncompliance with medical treatment and regimen;Other stimulant abuse;Opioid abuse;Cannabis abuse Presentation: 05/18 16:02 Presenting complaint: Patient states: patt been crying constantly and been in bed for 4 srm days. body physically exhausted. admits to SI but no plan. Mental Health Triage Level: Level 2:. Adult Sepsis Screening: The patient does not have new or worsening altered mentation. Patient's respiratory rate is less than 22. Systolic blood pressure is greater than 100. Patient has a qSOFA score of 0- Negative Sepsis Screen. Suicide/Homicide risk assessment- The patient admits to and/or has been reported to be having suicidal ideations. The patient reports that he/she has not been admitted to an inpatient mental health facility in the last 30 days. The patient reports that he/she has a recent or current history of substance abuse. The patient reports that he/she has a prior history of suicide attempt and/or organized plan. The patient reports that he/she has experienced a significant life altering event in the last 30 days. The patient reports that he/she has adequate social support. Status: Patient is not a family service worker or dependent. Transition of care: patient was not received from another setting of care. 16:02 Acuity: MORENA Level 3 srm 16:02 Method Of Arrival: Walkin/Carried/Asstd srm Triage Assessment: 16:07 General: Appears in no apparent distress, Behavior is appropriate for age, cooperative. srm Pain: Pain currently is 0 out of 10 on a pain scale. HIV screening NA for this visit Offered previously. RETAIL CLERK: 16:07 LMP 05/01/2016 srm Historical: - Allergies: Benadryl; Zyrtec; - Home Meds: 1. Lamictal 50mg in am and 100 mg at hs Oral TChD 2 times per day 2. albuterol sulfate 90 mcg/actuation Inhl aepb prn - PMHx: Asthma; Depression; biploar; - PSHx: plastic surgery to correct facial laceration; Tonsillectomy; Adenoidectomy; - The history from nurses notes was reviewed: and I agree with what is documented. - Social history: Smoking status: Patient uses tobacco products, current every day smoker. No barriers to communication noted, The patient speaks fluent Russian, Speaks appropriately for age. - Family history: Not pertinent. - : The pt / caregiver states he / she is not on anticoagulants. Home medication list is obtained from the patient. - Hospitalizations: : No recent hospitalization is reported. - Exposure Risk Screening:: None identified. - Immunization history:: All immunizations up-to-date. - Social history:: the patient smokes cigarettes the patient drinks alcohol, including recently. Screenin:47 Screening information is obtained from the patient. Fall risk: No risks identified. mk4 Assistance ADL's: requires no assistance with activities of daily living. Abuse/DV Screen: The patient / caregiver reports he/she is: not in a situation that causes fear, pain or injury. Nutritional screening: No deficits noted. Advance Directives: Currently, there is no health care proxy. There is no active DNR order. There is no living will. There is no Power of Casing Mixer. Advance directive information has not previously been placed in an [facility] medical record. Further advance directive information is declined. home support is adequate. Assessment: 16:16 General: Appears in no apparent distress, Behavior is cooperative, pleasant, family mk4 members in room with pt , laughing and joking. 17:20 General: Appears in no apparent distress, Behavior is cooperative, friends in room with mk4 pt, laughing and joking in NAD. 18:47 General: Appears in no apparent distress, comfortable, Behavior is cooperative. mk4 General: dinner tray given. Pain: Denies pain. Neurological: Level of Consciousness is awake, alert. Respiratory: Airway is patent Respiratory effort is even, unlabored, Respiratory pattern is regular, Breath sounds are clear bilaterally. 19:48 Reassessment: Patient appears in no apparent distress at this time. Patient denies pain rw1 at this time. Mental Health Eval: 17:59 Mental health consult is initiated at 17:45. Status: The patient is not a family service worker or dependent. [facility] Behavioral Health: The patient is not an established patient of [facility] Behavioral Health. Referral Information: Evaluation referral is generated by a relative; Cousin; Tee Frazier The patient was referred for evaluation because Pt presented to ED after +SI by smashing her car. Pt stated Quit her job (at [employer]) 2 weeks ago and lost her insurance. Pt missed her apt in Apr for medication refill. Pt reported in bed for the last 3 days, "crying hysterically for no reason", "Entire body is so exhausted". according to Pt, had an argument with BF today, left the house, feeling trapped. Thought of smashing her car as a SI attempt, but went to Cousin's house instead. Cousin brought Pt to [facility]. Cousin has Pt's car. Pt reported hx of cutting, stated has not cut since high school. Pt stated sleeps all the time, has lost interest in life, and continues to think +SI.. Subjective: The patients chief complaint is +SI with plan to smash car. . Delusions are denied. Patient's mood is dysphoric, hopeless, Hallucinations are denied. Mental Health history: anxiety, depression, suicide attempt by overdose, 10/2015 Mental Health Admissions: [facility], 10/2015, overdose Current Outpatient Mental Health Services: Psychiatrist / Agency: Janeen JENSEN for medication management. Missed last apt in April, has not rescheduled do to no insurance currently. . Therapist / Agency: Usha JENSEN, last seen in Mar 2016.. Current living environment is The patient currently lives with his / her significant other, of 3 years, and 2y/o Son.(currently with Grandparents).. Patient presents to Emergency Department with the following symptoms within the past 2 weeks: anxiety, depressed mood, drug abuse, feelings of helplessness/hopelessness, labile mood, poor impulse control, sleep disturbance - excessive sleeping, suicidal ideation with plan for motor vehicle crash. Substance abuse: Patient uses marijuana as needed to relax Patient uses opiates Frequency of use: as needed to relax. Mental status exam: Patients appearance is disheveled Patient's behavior is cooperative, minimally responsive Speech is slow. Affect is flat. Mood is dysphoric. Hallucinations are denied. Appetite is poor. Memory is good. Energy level is lethargic. Content of thought is depressive. , Thought process is characterized by flight of ideas. Cognitive level is oriented to person, place, time and situation Patient's insight is poor. Judgement is poor. Rapport with interviewer is good. Suicidal Ideation present with a plan to kill self by motor vehicle crash. Homicidal ideation is not present. Disposition: Medically cleared for disposition by Gio León MD. 18:26 Pt states preferred pharmacy is: [facility]. rb 18:55 Disposition: Psychiatric Consult is performed by phone with Dr Christopher Kimble. [facility] rb Admission Criteria: The patient is experiencing suicidal ideation. The patient displays symptoms of severe psychiatric disorder resulting in disordered behavior and significant interference with his / her ability to maintain self care. Severe Anxiety. Psychomotor Retardation. The patient requires continuous observation and/or control to protect self, others or property. The patient requires administration and monitoring of psychoactive medications by skilled medical providers due to the side effects of the psychoactive medications or significant dosage adjustments. Legal Status: Patient's legal status will be Emergency admission: . 19:28 Awaiting: transfer to [facility]. ms 19:33 Insurance Pre-Certification: Pt. reports she does not have insurance.. ms Vital Signs: 15:59 BP 129 / 76; Pulse 122; Resp 18 S; Temp 96.5(O); Pulse Ox 99% on R/A; Weight 62.6 kg gr2 (R); Height 5 ft. 2 in. (157.48 cm) (R); Pain 0/10; 18:50 BP 142 / 77; Pulse 86; Resp 18; Temp 97.0(T); Pulse Ox 99% on R/A; dpm 19:48 BP 114 / 71; Pulse 88; Resp 16; Temp 96.9(T); Pulse Ox 98% on R/A; Pain 0/10; rw1 15:59 Body Mass Index 25.24 (62.60 kg, 157.48 cm) gr2 Vitals: 15:59 Log In Time: May 18, 2016 at 15:59. RN notified that patient meets Red Flag gr2 criteria. ED Course: 15:58 Patient visited by Mayra Dunlap. gr2 15:58 Kasey Desai is Private Physician. gr2 15:58 Patient moved to Waiting gr2 16:01 Patient visited by Mayra Dunlap. gr2 16:03 Triage Initiated srm 16:08 Lang Yan, EVE is Primary Nurse. dpm 16:08 Patient moved to [facility] dpm 16:12 Gio León MD is Attending Physician. pc 16:24 Patient visited by Ehsan Nunez. dpm 16:25 Pt greeted and oriented to ED. Patient advised of names of staff involved in care, dpm location of call gaviria, wait times and NPO status. Patient has correct armband on for positive identification. Placed in gown. Placed in psych safe attire. Security observing. Property removed, inventory done, secured in belongings bag- placed in locked locker. Placed in locker 2. Ann Marie (RN) observed pt while changing. Psych Safety Check: Location: Psych Room. Visual Assessment: Cooperative. 16:35 Patient visited by Gio León MD. pc 16:37 Acetaminophen Level Sent. jam1 16:38 Basic Metabolic Profile Sent. jam1 16:38 Complete Blood Count Sent. jam1 16:38 Drug Eval Toxicology ED Only Sent. jam1 16:38 Ethyl Alcohol (ethanol) Sent. jam1 16:38 HCG,Serum Qualitative Sent. jam1 16:38 Liver Profile Sent. jam1 16:38 Salicylate Level Sent. jam1 16:46 [facility] was [place] into [employer] and attached to record. ks16 16:49 Patient visited by Ehsan Nunez. dpm 17:19 Patient visited by Ehsan Nunez. dpm 17:38 Patient visited by Ehsan Nunez. dpm 17:52 Patient visited by Ehsan Nunez. dpm 18:15 Patient visited by Ehsan Nunez. dpm 18:31 Patient visited by Ehsan Nunez. dpm 18:46 Patient visited by Ehsan Nunez. dpm 18:47 The patient / caregiver is instructed regarding the plan of care and ED course. mk4 18:47 No IV's were initiated during this patient's visit. No IV's were initiated during this mk4 patient's visit. No procedures done that require assistance. 18:54 Christopher Kimble is Hospitalizing Provider. pc 19:07 Patient visited by Ehsan Nunez. dpm 19:21 [facility] Legal paperwork was scanned into [employer] and attached to record. jl 19:27 Psych Safety Check: Location: Psych Room. Visual Assessment: Cooperative. tmm1 19:28 Patient visited by Jimena Garcia PCA. tmm1 19:47 Patient visited by Jimena Garcia PCA. tmm1 19:47 Psych Safety Check: Location: Psych Room. Visual Assessment: Cooperative. tmm1 Attachments: 19:21 [facility] Legal paperwork jl Order Results: Lab Order: Acetaminophen Level; SPEC'M 05/18/16 16:33 Test: ACETAMINOPHEN LEVEL; Value: < 2.0; Range: 10.0-30.0; Abnormal: Below low normal; Units: UG/ML; Status: F Lab Order: Basic Metabolic Profile; SPEC'M 05/18/16 16:33 Test: GLUCOSE, FASTING; Value: 91; Range: 70-105; Units: MG/DL; Status: F Test: BLOOD UREA NITROGEN; Value: 11; Range: 7-18; Units: MG/DL; Status: F Test: CREATININE FOR GFR; Value: 0.71; Range: 0.55-1.02; Units: MG/DL; Status: F Test: SODIUM LEVEL; Range: 136-145; Units: MEQ/L; Status: I Test: POTASSIUM SERUM; Range: 3.5-5.1; Units: MEQ/L; Status: I Test: CHLORIDE LEVEL; Range: 98-107; Units: MEQ/L; Status: I Test: CARBON DIOXIDE LEVEL; Range: 21-32; Units: MEQ/L; Status: I Test: ANION GAP; Range: 8-16; Units: MEQ/L; Status: I Test: CALCIUM LEVEL; Range: 8.5-10.1; Units: MG/DL; Status: I Test: GLOMERULAR FILTRATION RATE; Value: > 60.0; Range: >60; Status: F Test: SODIUM LEVEL; Value: 141; Range: 136-145; Units: MEQ/L; Status: F Test: POTASSIUM SERUM; Value: 3.6; Range: 3.5-5.1; Units: MEQ/L; Status: F Test: CHLORIDE LEVEL; Value: 109; Range: 98-107; Abnormal: Above high normal; Units: MEQ/L; Status: F Test: CARBON DIOXIDE LEVEL; Value: 20; Range: 21-32; Abnormal: Below low normal; Units: MEQ/L; Status: F Test: ANION GAP; Value: 12; Range: 8-16; Units: MEQ/L; Status: F Test: CALCIUM LEVEL; Value: 8.7; Range: 8.5-10.1; Units: MG/DL; Status: F Test Note: ; Units are mL/min/1.73 m2 Chronic Kidney Disease Staging per NKF: Stage I & II GFR >=60 Normal to Mildly Decreased Stage III GFR 30-59 Moderately Decreased Stage IV GFR 15-29 Severely Decreased Stage V GFR <15 Very Little GFR Left ESRD GFR <15 on MARINE ENGINE DRIVER Lab Order: Complete Blood Count; SPEC'M 05/18/16 16:33 Test: WHITE BLOOD COUNT; Value: 6.7; Range: 4.0-10.0; Units: K/mm3; Status: F Test: RED BLOOD COUNT; Value: 4.82; Range: 4.00-5.40; Units: M/mm3; Status: F Test: HEMOGLOBIN; Value: 14.9; Range: 12.0-16.0; Units: g/dl; Status: F Test: HEMATOCRIT; Value: 43.0; Range: 36.0-47.0; Units: %; Status: F Test: MEAN CORPUSCULAR VOLUME; Value: 89.1; Range: 80.0-96.0; Units: fl; Status: F Test: MEAN CORPUSCULAR HEMOGLOBIN; Value: 30.9; Range: 27.0-33.0; Units: pg; Status: F Test: MEAN CORPUSCULAR HGB CONC; Value: 34.7; Range: 32.0-36.5; Units: g/dl; Status: F Test: RED CELL DISTRIBUTION WIDTH; Value: 12.5; Range: 11.5-14.5; Units: %; Status: F Test: PLATELET COUNT, AUTOMATED; Value: 321; Range: 150-450; Units: k/mm3; Status: F Lab Order: Drug Eval Toxicology ED Only; SPEC'M 05/18/16 16:29 Test: AMPHETAMINES LEVEL URINE; Value: POSITIVE; Range: NEGATIVE; Abnormal: Above high normal; Status: F Test: BARBITURATES URINE; Value: NEGATIVE; Range: NEGATIVE; Status: F Test: BENZODIAZEPINES URINE; Value: NEGATIVE; Range: NEGATIVE; Status: F Test: CANNABINOIDS URINE; Value: POSITIVE; Range: NEGATIVE; Abnormal: Above high normal; Status: F Test: COCAINE METABOLITE URINE; Value: NEGATIVE; Range: NEGATIVE; Status: F Test: METHADONE URINE; Value: NEGATIVE; Range: NEGATIVE; Status: F Test: OPIATES URINE; Value: POSITIVE; Range: NEGATIVE; Abnormal: Above high normal; Status: F Test: TRICYCLIC ANTIDEPRESS URINE; Value: NEGATIVE; Range: NEGATIVE; Status: F Test Note: ; FALSE POSITIVE RESULTS CAN BE CAUSED BY THE USE OF PANTOPRAZOLE (PROTONIX). Lab Order: Ethyl Alcohol (ethanol); [facility]' 05/18/16 16:33 Test: ETHYL ALCOHOL (ETHANOL); Value: 0.024; Range: 0.000-0.010; Abnormal: Above high normal; Units: %; Status: F Lab Order: HCG,Serum Qualitative; [facility]' 05/18/16 16:33 Test: HCG, SERUM QUALITATIVE; Value: NEGATIVE; Range: NEGATIVE; Status: F Lab Order: Liver Profile; [facility] 05/18/16 16:33 Test: AST/SGOT; Value: 16; Range: 15-37; Units: U/L; Status: F Test: ALT/SGPT; Value: 19; Range: 12-78; Units: U/L; Status: F Test: ALKALINE PHOSPHATASE; Value: 64; Range: 45-117; Units: U/L; Status: F Test: BILIRUBIN,TOTAL; Value: 1.3; Range: 0.2-1.0; Abnormal: Above high normal; Units: MG/DL; Status: F Test: BILIRUBIN,DIRECT; Value: 0.3; Range: 0.0-0.2; Abnormal: Above high normal; Units: MG/DL; Status: F Test: TOTAL PROTEIN; Value: 7.1; Range: 6.4-8.2; Units: GM/DL; Status: F Test: ALBUMIN; Value: 4.1; Range: 3.2-5.2; Units: GM/DL; Status: F Test: ALBUMIN/GLOBULIN RATIO; Value: 1.37; Range: 1.00-1.93; Status: F Lab Order: Salicylate Level; [facility] 05/18/16 16:33 Test: SALICYLATE LEVEL; Value: < 1.7; Range: 5.0-30.0; Abnormal: Below low normal; Units: MG/DL; Status: F Lab Order: Thyroid Stimulating Hormone; SPEC'M 05/18/16 16:33 Test: THYROID STIMULATING HORMONE; Value: 0.626; Range: 0.358-3.740; Units: uIU/ML; Status: F Outcome: 18:54 Decision to Hospitalize by Provider. pc 19:48 Discharge Assessment: Patient awake, alert and oriented x 3. No cognitive and/or rw1 functional deficits noted. Patient verbalized understanding of disposition instructions. patient administered narcotics - no. The following High Risk Discharge criteria are identified: Admitted to Psych accompanied by tech, via wheelchair, with chart. Condition: stable. No special radiology studies were completed. 19:50 Patient left the ED. rw1 Signatures: Gio León MD MD pc Michelson, Staci, RN RN srm Steffen Magalie, RADIATOR FITTER RADIATOR FITTER jam1 Anibal, Jia, PSA PSA rb Jonn, William, PSA PSA jl Abril Arora, PSA PSA ms Bruno Yanez,RETAIL SUPERVISOR RETAIL SUPERVISOR rw1 Ehsan Nunez dpJimena Serna, RADIATOR FITTER RADIATOR FITTER tmm1 Mayra Dunlap gr2 Constance Palm RN RN mk4 Kaur Hernández, Reg Reg [id number] Chart Complete [facility]
[2016-05-20] MEDS: MIRTAZAPINE 7.5MG PER 1/2 TABLET PO PRN (21:14)
[2016-05-21 06:43] VITALS: BP 123/59
[2016-05-21] MEDS: NICOTINE 7 MG/24 HR TRANSDERMAL TD SCH (09:00)
[2016-05-21] MEDS: lamoTRIgine 25 MG TAB PO SCH ×2 (09:09→21:21)
[2016-05-21] MEDS: GABAPENTIN 300 MG CAP PO SCH ×3 (09:09→21:21)
[2016-05-21] MEDS ORDERED: CEPACOL LOZENGE PO PRN (15:00)
--- NOTE | 2016-05-21 15:10 | IPNPDOC ---
[facility] Progress Note Progress Note DATE OF SERVICE: 05/21/16 Subjective: Patient is calm and cooperative and engaged in the interview. Patient reports no issues on the unit. Mood continues to improve since admission. She denies SI/HI and AH/VH. Patient reports fair sleep and appetite. Patient reports med compliance and denies med s/e's. Objective: VITALS: wnl MENTAL STATUS EXAMINATION: Patient looks stated age, in NAD, calm and cooperative. Has good eye contact. Speech RRR. Mood is euthymic Affect is broad. No delusions or hallucinations noted. Memory is fair. The patient is fully oriented. Associations are intact. Thinking is linear. Thought content is appropriate. Patient denies suicidal or homicidal ideation during the interview. Insight and judgment are fair. ASSESSMENT: 1. Bipolar d/o, unspecified 2. Amphetamine use d/o. 3. Opioid use d/o. 4. Cannabis use d/o. PLAN: 1. Continue close observation. 2. Continue current psychotropic med regimen. 3. Continue with individual and group therapy. Time spent: 30 minutes Vital Signs Vital Signs Date Time Temp Pulse Resp B/P Pulse Ox O2 Delivery O2 Flow Rate FiO2 05/21/16 06:43 95.0 74 16 123/59 05/18/16 20:06 98 Room Air Current Medications Current Medications Acetaminophen (Tylenol Tab) 650 mg Q6HP PRN PO HEADACHE or DISCOMFORT; Start at 22:30; Stop 06/17/16 at 22:29 Al Hydrox/Mg Hydrox/Simethicone (Mylanta) 30 ml Q4HP PRN PO HEARTBURN/ INDIGESTION; Start 05/18/16 at 22:30; Stop 06/17/16 at 22:29 Albuterol Sulfate (Proventil, Ventolin Hfa) 2 puff Q4HP PRN INH SHORTNESS OF BREATH; Start 05/19/16 at 12:00; Stop 06/18/16 at 11:59 Cetylpyridinium Chloride (Cepacol) 1 freddy Q2HP PRN PO COUGH; Start 05/21/16 at 15:00; Stop 06/20/16 at 14:59 Gabapentin (Neurontin) 300 mg TID PO Last administered on 05/21/16t 15:04; Start 05/21/16 at 09:00; Stop 06/20/16 at 08:59 Home Med (Med Rec Complete!) ASDIRECTED XX ; Start 05/18/16 at 19:45; Stop at 19:54; Status DC Lamotrigine (LaMICtal) 50 mg BID PO Last administered on 05/21/16 09:09; Start 05/19/16 at 09:00; Stop 06/18/16 at 08:59 Lamotrigine (LaMICtal) 50 mg QHS PO Last administered on 05/18/16 22:47; Start 05/18/16 at 21:00; Stop 05/19/16 at 12:14; Status DC Lorazepam (Ativan) 1 mg Q4HP PRN PO ANXIETY/AGITATION; Start 05/18/16 at 22:30 ; Stop 05/19/16 at 12:15; Status DC Magnesium Hydroxide (Milk Of Magnesia) 30 ml DAILYPRN PRN PO CONSTIPATION; Start 05/18/16 at 22:30; Stop 06/17/16 at 22:29 Mirtazapine (Remeron) 7.5 mg QHSP PRN PO INSOMNIA Last administered on 21:14; Start 05/20/16 at 17:15; Stop 06/19/16 at 17:14 Mirtazapine (Remeron) 15 mg QHSP PRN PO INSOMNIA Last administered on 21:06; Start 05/18/16 at 22:30; Stop 05/20/16 at 17:03; Status DC Nicotine (Nicoderm Cq 7 Mg) 1 patch DAILY TD ; Start 05/19/16 at 09:00; Stop at 08:59 Olanzapine (ZyPREXA ZYDIS) 5 mg Q6HP PRN PO ANXIETY/AGITATION; Start at 12:15; Stop 06/18/16 at 12:14 Allergies Coded Allergies: Cetirizine (Unverified Allergy, Intermediate, HIVES, 11/09/15) Diphenhydramine (Unverified Allergy, Intermediate, HIVES, 11/09/15) ALTON POSADA MD May 21, 2016 15:10 at 08:59 Olanzapine (ZyPREXA ZYDIS) 5 mg Q6HP PRN PO ANXIETY/AGITATION; Start at 12:15; Stop 06/18/16 at 12:14 Allergies Coded Allergies: Cetirizine (Unverified Allergy, Intermediate, HIVES, 11/09/15) Diphenhydramine (Unverified Allergy, Intermediate, HIVES, 11/09/15) ALTON POSADA MD May 21, 2016 15:10
[2016-05-21 18:00] VITALS: BP 121/60
[2016-05-21] MEDS: MIRTAZAPINE 7.5MG PER 1/2 TABLET PO PRN (21:20)
[2016-05-22 06:49] VITALS: BP 111/57
[2016-05-22] MEDS: GABAPENTIN 300 MG CAP PO SCH ×3 (08:35→21:02)
[2016-05-22] MEDS: lamoTRIgine 25 MG TAB PO SCH (08:35)
[2016-05-22] MEDS: NICOTINE 7 MG/24 HR TRANSDERMAL TD SCH (08:36)
--- NOTE | 2016-05-22 09:13 | IPNPDOC ---
Subjective Date Seen The patient was seen on 05/22/16. Subjective Chief Complaint/HPI The patient is a 20-year-old female admitted with a reason for visit of Unspecified Depressive Disorder. ENT: Reports: Head Aches (head pressure. ), Other Symptoms (maxillary sinus pressure, yellow-greenish rhinorrhea. Pt states sx started Sat.), Post Nasal Drip, Sinus Congestion, Sore Throat Pulmonary: Denies: Cough, Dyspnea Cardiovascular: Denies: Chest Pain, Lt Headedness, Orthopnea, Palpitations, Paroxysmal Noc. Dyspnea Gastrointestinal: Denies: Abdominal Pain, Constipation, Diarrhea, Nausea, Vomiting Genitourinary: Denies: Dysuria, Frequency, Incontinence, Retention Musculoskeletal: Denies: Back Pain, Joint Pain, Muscle Pain, Neck Pain, Spasms Objective Physical Examination General Exam: Positive: Alert Eye Exam: Positive: PERRLA ENT Exam: Positive: Atraumatic, Ext Auditory Canal Nml, Mucous membr. moist/ pink, Other ENT (yellow nasal drainage. TTP over maxillary sinuses. Mild pharyngeal erythema, no exudate. ) Neck Exam: Positive: Supple Chest Exam: Positive: Clear to auscultation, Normal air movement Heart Exam: Positive: Normal S1, Normal S2, Rate Normal, Regular Rhythm, Negative: Murmurs, Rubs Abdomen Exam: Positive: Normal bowel sounds, Soft, Negative: Hepatospenomegaly, Tenderness Extremity Exam: Positive: Normal pulses, Negative: Clubbing, Cyanosis, Edema Skin Exam: Positive: Nl turgor and temperature Assessment /Plan Problems (1) Sinusitis Status: Acute Problem Text: * Amoxicillin 500mg TID * Flonase daily * Cepacol as needed. (2) Tobacco abuse Status: Chronic Problem Text: * Nicoderm (3) Asthma Status: Chronic Problem Text: * Ventolin prn (4) Allergic rhinitis Status: Chronic Problem Text: * Flonase Plan/VTE VTE Prophylaxis Ordered?: No (ambulatory) VS, I&O, 24H, Fishbone Vital Signs/I&O Vital Signs Date Time Temp Pulse Resp B/P Pulse Ox O2 Delivery O2 Flow Rate FiO2 05/22/16 06:49 95.5 71 16 111/57 05/18/16 20:06 98 Room Air Sharla Saravia May 22, 2016 09:13
[2016-05-22] MEDS: AMOXICILLIN 500 MG CAP PO SCH ×3 (09:32→21:02)
[2016-05-22] MEDS: FLUTICASONE PROP 0.05% NASAL SPRAY 16 GM (FLONASE) SCH (09:32)
--- NOTE | 2016-05-22 15:06 | IPN ---
DATE: 05/22/2016 23-year-old female with history of bipolar disorder admitted for depression and suicidal ideation. Patient was planning "to smash my car." MEDICATIONS: - Lamictal 50 mg by mouth twice a day - Neurontin 300 mg by mouth three times a day - Remeron 7.5 mg by mouth nightly as needed for insomnia SUBJECTIVE: "I am feeling better." OBJECTIVE: Patient's Remeron had to be decreased from 15 mg to 7.5 mg because of excessive sedation. Over the weekend she was started on Neurontin 300 mg by mouth three times a day with good results. Patient denies side effect from the medication. Patient reports being very sensitive to antidepressants. She said that she became "suicidal with Zoloft." Patient is minimizing the use of substances. MENTAL STATUS EXAMINATION: Patient is dressed in [facility]. Patient is cooperative during the exam. Speech is soft and monotone. Mood is depressed and anxious but improving. Affect is somewhat restricted, but also improving. No delusions or hallucinations. Memory is fair. Patient is fully oriented. Associations are intact. Thinking is logical. Thought content is appropriate. Patient is able to contract for safety and denies suicidal or homicidal ideation during the interview. Insight and judgment is limited. ASSESSMENT: 1. Bipolar disorder, depressed episode. 2. Polysubstance abuse. 3. Suicidal ideation. PLAN: 1. Continue with Neurontin 300 mg by mouth three times a day. 2. Increase Lamictal to 50 mg by mouth every morning and 100 mg by mouth nightly. 3. Continue with Remeron 7.5 mg by mouth nightly as needed for insomnia. 4. Continue with medication management and individual and group therapy.
[2016-05-22 18:00] VITALS: BP 130/52
[2016-05-22] MEDS: lamoTRIgine 100MG TAB PO SCH (21:02)
[2016-05-22] MEDS: MIRTAZAPINE 7.5MG PER 1/2 TABLET PO PRN (21:02)
[2016-05-23] MEDS: AMOXICILLIN 500 MG CAP PO SCH ×3 (06:12→21:38)
[2016-05-23 06:50] VITALS: BP 105/53
[2016-05-23] MEDS: NICOTINE 7 MG/24 HR TRANSDERMAL TD SCH (08:27)
[2016-05-23] MEDS: FLUTICASONE PROP 0.05% NASAL SPRAY 16 GM (FLONASE) SCH (08:29)
[2016-05-23] MEDS: GABAPENTIN 300 MG CAP PO SCH ×3 (08:29→21:38)
[2016-05-23] MEDS: lamoTRIgine 25 MG TAB PO SCH (08:29)
[2016-05-23] MEDS ORDERED: NICO7PA TD (12:11)
[2016-05-23] MEDS ORDERED: AMOX500C PO (12:11)
[2016-05-23] MEDS ORDERED: FLUTISP (12:11)
[2016-05-23] MEDS ORDERED: MIRT15TA3 PO (16:57)
[2016-05-23] MEDS ORDERED: GABA300C3 PO (16:57)
[2016-05-23] MEDS ORDERED: LAMI25TA PO (16:57)
[2016-05-23] MEDS ORDERED: LAMO10TA PO (16:57)
[2016-05-23] MEDS ORDERED: CEPACOL PO (17:38)
[2016-05-23 18:00] VITALS: BP 123/72
--- NOTE | 2016-05-23 18:28 | IPN ---
DATE: 05/23/2016 A 23-year-old female with history of bipolar disorder admitted for depression and suicidal ideation. Patient was planning to "smash my car." MEDICATIONS: - Lamictal 50 mg by mouth every morning and 100 mg by mouth at bedtime - Neurontin 300 mg by mouth three times a day - Remeron 7.5 mg by mouth at bedtime as needed for insomnia SUBJECTIVE: "I feel much better." OBJECTIVE: Patient has significantly improved from admission. Patient is no longer having suicidal thoughts. Patient is denying any side effect from the medication. Patient is able to interact well with other patients and staff. Patient is sleeping well through the night with the help of medication. MENTAL STATUS EXAMINATION: Patient is dressed in [facility]. Patient is cooperative. Speech is normal in rate, volume, and articulation. Mood is slightly depressed but significantly improved from admission. Affect is congruent with mood. No delusions or hallucinations. Memory is fair. Patient is fully oriented. Associations are intact. Thinking is logical. Thought content is appropriate. Denies suicidal or homicidal ideation. Insight and judgment is limited. ASSESSMENT: 1. Bipolar disorder, depressed episode. 2. Polysubstance abuse. 3. Suicidal ideation. PLAN: 1. Continue with Neurontin 300 mg by mouth three times a day. 2. Continue with Lamictal 50 mg by mouth every morning and 100 mg by mouth at bedtime. 3. Continue with Remeron 7.5 mg by mouth at bedtime as needed for insomnia. 4. If patient continues improving, we will discharge tomorrow.
[2016-05-23] MEDS: MIRTAZAPINE 7.5MG PER 1/2 TABLET PO PRN (21:38)
[2016-05-23] MEDS: lamoTRIgine 100MG TAB PO SCH (21:38)
[2016-05-24] MEDS: AMOXICILLIN 500 MG CAP PO SCH (05:51)
[2016-05-24 06:42] VITALS: BP 116/63
[2016-05-24] MEDS: NICOTINE 7 MG/24 HR TRANSDERMAL TD SCH (08:16)
[2016-05-24] MEDS: FLUTICASONE PROP 0.05% NASAL SPRAY 16 GM (FLONASE) SCH (08:18)
[2016-05-24] MEDS: lamoTRIgine 25 MG TAB PO SCH (08:18)
[2016-05-24] MEDS: GABAPENTIN 300 MG CAP PO SCH (08:18)
--- NOTE | 2016-05-24 21:39 | DSES ---
DATE OF ADMISSION: 05/18/2016 DATE OF DISCHARGE: 05/24/2016 9.39 legal status. HISTORY OF PRESENT ILLNESS: 20-year-old female with bipolar disorder and anxiety admitted to our unit on a 9.39 legal status. According to the chart the patient was brought to our emergency department because of depression and suicidal thoughts. Patient was thinking about "smashing my car." It is reported that she quit her job at [employer] two weeks ago and she lost her insurance. She missed her outpatient appointment and she ran out of medication refills. So she has been off medication for the last couple of weeks. She says she has been feeling very depressed in bed for the last three days, "crying for no reason". "I feel exhausted." It is reported that she had an argument with her boyfriend and left the house. She said that she felt trapped and she was thinking about smashing her car, but she went to see her cousin who brought the patient to our emergency department. Patient stated that she has lost "interest in life." She was not able to contract for safety during the emergency department (ED) evaluation. During the interview in our unit, patient reports feeling depressed, hopeless with very low energy, she is isolating, she has been in bed for the last 3 days "crying a lot", reports her appetite okay and has significant mood swings. Getting angry easily and having suicidal thoughts. Patient says was diagnosed with bipolar disorder and has been on Lamictal 50 mg by mouth every morning and 100 by mouth at bedtime and Remeron at bed time. During the interview there is no evidence of psychosis, nor auditory or visual hallucinations or delusions. Patient reported that she has been using Adderall, Vicodin, Percocet, and marijuana before admission. She says she has been using for the last couple of weeks since she has been off medications. LABS AT ADMISSION: Her CBC was within normal limits. CMP was unremarkable except total bilirubin of 1.3 and direct bilirubin of 0.3. TSH within normal limits. test negative. UDS was positive for opiates, amphetamines and cannabis. Blood alcohol level was 0.24. HOSPITAL COURSE: After the first evaluation, patient was started on Lamictal 50 mg by mouth twice a day with the idea to increase it slowly and build it up again as she was taking it as an outpatient basis. She was started on Remeron 50 mg by mouth at bedtime. During the weekend, the doctor online marketing strategist placed the patient on Neurontin 300 mg by mouth three times a day since she reported significant anxiety. When I evaluated her on Sunday she said gabapentin was very helpful so she was kept on it with the recommendations that later on she may be tapered off one of the two mood stabilizers, probably will have the Lamictal increased and gabapentin tapered down. On May 24, patient is denying any suicidal or homicidal ideation. There is no evidence of psychotic symptoms. No auditory or visual hallucinations or delusion. Patient does not meet criteria for involuntary hospitalization. She wants to be discharged and be followed as outpatient, therefore is discharged on this date in stable condition. MENTAL STATUS EXAMINATION AT DISCHARGE: Patient is dressed in [facility]. Patient is calm and cooperative. Speech is clear, coherent with normal rate and spontaneous. Patient has good eye contact. Mood is depressed and anxious but significantly improved from admission. Affect is appropriate and congruent with mood. Patient is oriented to time, place, person and situation. Maintains attention and concentration correctly. Instant recall, recent and remote memory intact. Thought process are coherent and goal-directed. Patient does not have auditory or visual hallucination. Patient does not paranoid, persecutory, somatic, grandiose or buddhism delusions. The patient is denying suicidal or homicidal ideation. Judgment and insight are fair. DISCHARGE MEDICATIONS: - Lamictal 50 mg by mouth every morning and 100 mg by mouth at bedtime - Neurontin 300 mg by mouth three times a day - Remeron 7.5 mg by mouth at bedtime as needed for insomnia. DISCHARGE DIAGNOSES: AXIS: Bipolar disorder, depressed episode. Polysubstance abuse. AXIS II: Deferred. AXIS III: Asthma. INSTRUCTIONS TO THE PATIENT: Patient is to continue taking her medications as prescribed and follow up appointments. She is advised to maintain absolute sobriety from drugs and alcohol, Patient has scheduled appointment for psychotropic medication management, individual psychotherapy and primary care physician.
== END 2016-05-24 09:25 | disposition home or self-care (01) | DRG 753 ==
LOC: M ED 15:57 → M PSY 20:00
PROVIDERS: ADMIT Psychiatry & Neurology Psychiatry; ATTEND Psychiatry & Neurology Psychiatry
DX: F31.9 Bipolar disorder, unspecified (principal); F11.10 Opioid abuse, uncomplicated; J45.909 Unspecified asthma, uncomplicated; Z79.899 Other long term (current) drug therapy; F12.10 Cannabis abuse, uncomplicated; F17.200 Nicotine dependence, unspecified, uncomplicated; J01.90 Acute sinusitis, unspecified

== ENCOUNTER 2016-11-17 13:41 | Emergency (ER) | payer SELFPAY ==
[~2016-11-17] VITALS: Ht 157.5 cm; Wt 65.9 kg
[~2016-11-17 13:41] MED LIST changes: +AMOX500C PO; +CEPACOL PO; +FLUTISP; +GABA-282 PO; +HYDR-3363 PO; -HYDR25T PO; +LAMI1TAB7 PO; +LAMO10TA PO; +LEXA5TAB13 PO; +MIRT15TA3 PO; +NICO7PA TD; +REME15TA PO
[2016-11-17] MEDS ORDERED: LAMI25TA PO (13:51)
[2016-11-17] MEDS ORDERED: IBUPROFEN 600 MG TAB PO ONE (15:00)
--- NOTE | 2016-11-17 15:19 | REP ---
CT Head without contrast HISTORY: Trauma COMPARISON: None There is no intraparenchymal hemorrhage, acute infarct, mass or midline shift. The ventricular system is normal in appearance. There is no extra cerebral collection. There is no fracture. The visualized sinuses are clear. IMPRESSION: There is no intracranial lesion. Signed by Billy Spaulding MD 11/17/2016 03:11 P
[2016-11-17] MEDS ORDERED: NAPR500T PO (15:55)
--- NOTE | 2016-11-17 16:01 | REP ---
CERVICAL SPINE, SEVEN VIEWS: HISTORY: Fall. There is no acute fracture or subluxation. The intervertebral discs are normal in height. The neural foramina are patent. There is loss of the normal lordotic curve. IMPRESSION: There is no acute fracture or subluxation. Signed by Billy Spaulding MD 11/17/2016 04:04 P
--- NOTE | 2016-11-17 16:02 | REP ---
THORACIC SPINE, THREE VIEWS: HISTORY: Fall. There is no acute fracture or subluxation. The intervertebral discs are normal in height. IMPRESSION: There is no acute fracture or subluxation. Signed by Billy Spaulding MD 11/17/2016 04:03 P
[2016-11-17 16:08] VITALS: BP 106/65
== END 2016-11-17 16:10 | disposition home or self-care (01) ==
LOC: M ED 13:41
DX: S20.229A Contusion of unspecified back wall of thorax, initial encounter (principal); W10.8XXA Fall (on) (from) other stairs and steps, initial encounter; Y92.099 Unspecified place in other non-institutional residence as the place of occurrence of the external cause; Y93.01 Activity, walking, marching and hiking; Y99.9 Unspecified external cause status

== ENCOUNTER → 2018-06-30 | Outpatient (REF) | payer OTHER ==
[~2018-06-30] MED LIST changes: -GABA-282 PO; +GABA-843 PO; +LAMO100T80 PO; -LAMO10TA PO; +NAPR-837 PO
== END ==
LOC: M SFHCLERA 13:36
PROVIDERS: ATTEND Physician Assistant
DX: J02.9 Acute pharyngitis, unspecified (principal)

== ENCOUNTER → 2019-01-13 | Outpatient (CLI) | payer OTHER ==
[~2019-01-13] MED LIST changes: +TRAZ1TAB11 PO; -TRAZ25TA PO
== END ==
LOC: M LAB 12:38
PROVIDERS: ATTEND Registered Nurse
DX: Z32.01 Encounter for pregnancy test, result positive (principal); Z3A.00 Weeks of gestation of pregnancy not specified

== ENCOUNTER → 2019-01-22 | Outpatient (CLI) | payer OTHER ==
--- NOTE | 2019-01-23 08:13 | REP ---
FOCUSED RIGHT BREAST SONOGRAPHY: HISTORY: Three to four distinct lumps at 11-o'clock position in the right breast 1 cm in diameter, 3 cm from the areola. No comparison breast imaging. FINDINGS: Scanning of the right breast at the 10-11 o'clock position in the area of the palpable abnormalities demonstrates heterogeneous fibroglandular background echotexture. No mass or cyst is identified. No acoustic shadowing or architectural distortion is seen. IMPRESSION: BIRADS category 1 negative right breast sonographic findings: Clinical followup is advised. Electronically Signed by Moises Grey MD 01/23/2019 08:35 A
== END ==
LOC: M RAD 16:07
PROVIDERS: ATTEND Physician Assistant
DX: N63.22 Unspecified lump in the left breast, upper inner quadrant (principal)

== ENCOUNTER → 2019-04-11 | Outpatient (CLI) | payer OTHER ==
--- NOTE | 2019-04-11 16:46 | REP ---
Digital diagnostic bilateral mammography with CAD, and focused bilateral breast sonography: History: There is a history of bilateral breast lumps, one in each upper outer quadrant. The lump in the upper outer quadrant of the right breast has been present for 2 years according to the patient. The left upper outer quadrant lump was noted 3 months ago. No comparison breast imaging. Mammographic findings: A skin marker is affixed to the skin at the site of the palpable lump on each side. Routine views of the right breast are augmented by both laterally and medially exaggerated craniocaudal views of the right breast. The breast parenchyma is heterogeneously dense in a pattern which may inhibit the sensitivity of mammography. The craniocaudad views of the right breast demonstrate an area of asymmetric breast tissue medially without mass-like features. There is no evidence of mass in the upper outer quadrant of either breast at the location of the skin marker or elsewhere. No microcalcification or architectural distortion is seen. No worrisome skin change is appreciated. Sonographic findings: The area of each palpable lump was observed sonographically, upper outer quadrants, 10 o'clock and 2 o'clock. Heterogeneous fibroglandular background echotexture is seen bilaterally. No cyst, mass, acoustic shadowing or architectural distortion is seen by ultrasound in either upper outer quadrant. The medial aspect of the right breast was also scanned and normal breast stroma is seen sonographically in this location. Impression: BIRADS category 2 benign findings. Clinical follow-up is advised. BIRADS 2: BI-RADS/ACR category 2 mammogram. Benign Findings. This mammogram was interpreted with the aid of an FDA-approved computer-aided detection system. The patient states she had a clinical breast exam in March 2019. The patient letter being requested is m2. Dense This patient's estimated Tyrer-Cuzick lifetime risk assessment for the breast cancer is 14.5 %.
== END ==
LOC: M WHC 10:35
PROVIDERS: ATTEND Surgery
DX: N63.10 Unspecified lump in the right breast, unspecified quadrant (principal); N63.20 Unspecified lump in the left breast, unspecified quadrant
CPT/HCPCS: 76642; 77066; G0279

== ENCOUNTER → 2019-05-02 | Outpatient (CLI) | payer OTHER ==
[~2019-05-02] MED LIST changes: +MAPA500T2 PO; +ORTH1TAB8 PO
[2019-05-02 12:11] VITALS: BP 108/74
--- NOTE | 2019-05-02 12:50 | ROOPDOC ---
[facility] Report Of Operation Report of Operation DATE OF PROCEDURE: 05/02/19 PREPROCEDURE DIAGNOSES: bilateral palpable breast masses POSTPROCEDURE DIAGNOSES: bilateral palpable breast masses PROCEDURE: Ultrasound guided bilateral breast biopsy with bilateral clip placement SURGEON: Juliet Chamberlain D.O. AUTO FLEET MAINTENANCE MANAGER: ANESTHESIA: local ESTIMATED BLOOD LOSS: Approximately 1 mL. COMPLICATIONS: none REMARKS: post biopsy clips seen in the right and left breast at the expected location PROCEDURE NOTE: DESCRIPTION OF PROCEDURE: . Lidocaine 1% LOT [id number] Expiration 07/2022 Sodium Bicarbonate 8.4% LOT [id number] Expiration 08/2020 Hydromark clip LOT [id number] Expiration 12/2021 Bx device: BARD [id number] x10 cm LOT HUDY [id number] Expiration 01/2022 Informed consent was obtained in the preop area. The most common risk and possible complications including bleeding, hematoma, bruising, infection, injury to surrounding structures were explained to the patient and she expressed understanding. Patient was taken to the procedure room and placed on the bed in the supine position. Procedure was started on the right side. Her right upper extremity was placed above the head. Appropriate time out was done stating patients name, date of , and the procedure to be performed. The right breast was prepped and draped in the usual fashion. The ultrasound was used to confirm the location of the palpable right breast mass at 10:00. This mass was confirmed by the patient. There was no clear sonographic corelate to the mass. Plain Lidocaine 1% and 8.4% sodium bicarbonate 10:1 mix was used to numb the skin, the biopsy site and tissues along the anticipated biopsy tract. Small skin incision was made with blade number 11. BARD Marquee 14G cannula with introducer ([id number]) was inserted through the incision and advanced under the ultrasound guidance to position immediately adjacent to the lesion. Next, the introducer was removed and BARD Marquee 14G biopsy device was places in the cannula. Pre-biopsy imaging, and post-biopsy imaging were captured. Five good core biopsies were taken at various levels of the lesion. Next, the biopsy device was withdrawn and a clip introducer was inserted into the biopsy site via the cannula. The Hydromark clip was deployed under direct vision. Post-clip placement image was captured. Manual pressure over the biopsy cavity and tract was held after the clip introducer was withdrawn. No bleeding was noted upon removal of the pressure. Our attention was then turned to the left side. Left breast palpable mass was confirmed by the patient at the 2:00. Patients left upper extremity was placed above the head. The left breast was prepped and draped in the usual fashion. The ultrasound was used to confirm the location of the palpable left breast mass at 10:00. There was no clear sonographic corelate to the mass. Plain Lidocaine 1% and 8.4% sodium bicarbonate 10:1 mix was used to numb the skin, the biopsy site and tissues along the anticipated biopsy tract. Small skin incision was made with blade number 11. BARD Marquee 14G cannula with introducer ([id number]) was inserted through the incision and advanced under the ultrasound guidance to position immediately adjacent to the lesion. Next, the introducer was removed and BARD Marquee 14G biopsy device was places in the cannula. Pre-biopsy imaging, and post-biopsy imaging were captured. Five good core biopsies were taken at various levels of the lesion. Next, the biopsy device was withdrawn and a clip introducer was inserted into the biopsy site via the cannula. The Hydromark clip was deployed under direct vision. Post-clip placement image was captured. Manual pressure over the biopsy cavity and tract was held after the clip introducer was withdrawn. No bleeding was noted upon removal of the pressure. Post-biopsy mammogram of the right and left breast was obtained and showed clips in expected position. Postprocedural dressing was placed. Patient tolerated procedure well and was taken to the recovery unit in stable condition. Discharge instructions were discussed with the patient and she expressed understanding. JULIET CHAMBERLAIN DO May 02, 2019 12:50
--- NOTE | 2019-05-07 14:10 | REP ---
BREAST SONOGRAPHY: HISTORY: Breast biopsy procedure. Ultrasound guidance. Sonographic guidance is provided to Dr. Morales who performed ultrasound-guided breast biopsy procedure.
== END ==
LOC: M WHCPRO 10:33
PROVIDERS: ATTEND Surgery
DX: N64.1 Fat necrosis of breast (principal); N64.2 Atrophy of breast

== ENCOUNTER → 2019-05-02 | Outpatient (REF) | payer OTHER | LOC: M SFHCWAGY 16:56 | PROVIDERS: ATTEND Surgery | DX: D49.3 Neoplasm of unspecified behavior of breast (principal) ==

== ENCOUNTER → 2019-05-02 | Outpatient (CLI) | payer OTHER ==
--- NOTE | 2019-05-02 12:24 | POST-OPPD ---
Postoperative Procedure Note Date Of Procedure: May 02, 2019 Time Of Procedure: 11:00 PREOPERATIVE DIAGNOSIS: bilateral palpable breast masses POSTOPERATIVE DIAGNOSIS: bilateral palpable breast masses FINDINGS: bilateral palpable breast masses, both clips are visible on post procedure mammogram PROCEDURE: Ultrasound guides bilateral breast biopsy with clip placement SURGEON: Juliet Chamberlain STAFF ANESTHETIST: ANESTHESIA: local anesthetic SPECIMENS: Right breast mass and Left breast mass ESTIMATED BLOOD LOSS: 1 ml DRAINS: none COMPLICATIONS: none POSTOPERATIVE CONDITION: excellent JULIET CHAMBERLAIN DO May 02, 2019 12:24
--- NOTE | 2019-05-02 12:37 | REP ---
DIGITAL DIAGNOSTIC BILATERAL MAMMOGRAPHY WITH CAD: HISTORY: Marker clip placement mammography. The patient is status post bilateral ultrasound guided needle biopsy. Procedure is performed by Dr. Morales. History of lump in the right breast. Comparison mammography April 11, 2019. FINDINGS: Breast parenchyma is again seen to be heterogeneously dense. There is a needle biopsy marker clip projecting in the upper outer quadrant of each breast in the approximate the location where previous mammography showed the skin markers at the site of the palpable lumps. IMPRESSION: There is a marker clip in the upper outer quadrant of each breast.
--- NOTE | 2019-05-02 12:50 | ROOPDOC ---
[facility] Report Of Operation Report of Operation DATE OF PROCEDURE: 05/02/19 PREPROCEDURE DIAGNOSES: bilateral palpable breast masses POSTPROCEDURE DIAGNOSES: bilateral palpable breast masses PROCEDURE: Ultrasound guided bilateral breast biopsy with bilateral clip placement SURGEON: Juliet Chamberlain D.O. SIDEHAND: ANESTHESIA: local ESTIMATED BLOOD LOSS: Approximately 1 mL. COMPLICATIONS: none REMARKS: post biopsy clips seen in the right and left breast at the expected location PROCEDURE NOTE: DESCRIPTION OF PROCEDURE: . Lidocaine 1% LOT [id number] Expiration 07/2022 Sodium Bicarbonate 8.4% LOT [id number] Expiration 08/2020 Hydromark clip LOT [id number] Expiration 12/2021 Bx device: BARD [id number] x10 cm LOT HUDY 1996 Expiration 01/2022 Informed consent was obtained in the preop area. The most common risk and possible complications including bleeding, hematoma, bruising, infection, injury to surrounding structures were explained to the patient and she expressed understanding. Patient was taken to the procedure room and placed on the bed in the supine position. Procedure was started on the right side. Her right upper extremity was placed above the head. Appropriate time out was done stating patients name, date of , and the procedure to be performed. The right breast was prepped and draped in the usual fashion. The ultrasound was used to confirm the location of the palpable right breast mass at 10:00. This mass was confirmed by the patient. There was no clear sonographic corelate to the mass. Plain Lidocaine 1% and 8.4% sodium bicarbonate 10:1 mix was used to numb the skin, the biopsy site and tissues along the anticipated biopsy tract. Small skin incision was made with blade number 11. BARD Marquee 14G cannula with introducer ([id number]) was inserted through the incision and advanced under the ultrasound guidance to position immediately adjacent to the lesion. Next, the introducer was removed and BARD Marquee 14G biopsy device was places in the cannula. Pre-biopsy imaging, and post-biopsy imaging were captured. Five good core biopsies were taken at various levels of the lesion. Next, the biopsy device was withdrawn and a clip introducer was inserted into the biopsy site via the cannula. The Hydromark clip was deployed under direct vision. Post-clip placement image was captured. Manual pressure over the biopsy cavity and tract was held after the clip introducer was withdrawn. No bleeding was noted upon removal of the pressure. Our attention was then turned to the left side. Left breast palpable mass was confirmed by the patient at the 2:00. Patients left upper extremity was placed above the head. The left breast was prepped and draped in the usual fashion. The ultrasound was used to confirm the location of the palpable left breast mass at 10:00. There was no clear sonographic corelate to the mass. Plain Lidocaine 1% and 8.4% sodium bicarbonate 10:1 mix was used to numb the skin, the biopsy site and tissues along the anticipated biopsy tract. Small skin incision was made with blade number 11. BARD Marquee 14G cannula with introducer ([id number]) was inserted through the incision and advanced under the ultrasound guidance to position immediately adjacent to the lesion. Next, the introducer was removed and BARD Marquee 14G biopsy device was places in the cannula. Pre-biopsy imaging, and post-biopsy imaging were captured. Five good core biopsies were taken at various levels of the lesion. Next, the biopsy device was withdrawn and a clip introducer was inserted into the biopsy site via the cannula. The Hydromark clip was deployed under direct vision. Post-clip placement image was captured. Manual pressure over the biopsy cavity and tract was held after the clip introducer was withdrawn. No bleeding was noted upon removal of the pressure. Post-biopsy mammogram of the right and left breast was obtained and showed clips in expected position. Postprocedural dressing was placed. Patient tolerated procedure well and was taken to the recovery unit in stable condition. Discharge instructions were discussed with the patient and she expressed understanding. JULIET CHAMBERLAIN DO May 02, 2019 12:50
== END ==
LOC: M WHC 10:56
PROVIDERS: ATTEND Surgery
DX: N63.20 Unspecified lump in the left breast, unspecified quadrant (principal)

== ENCOUNTER → 2020-12-21 | Outpatient (CLI) | payer BC, OTHER ==
[~2020-12-21] MED LIST changes: +GABA-282 PO; -GABA-843 PO; +MIRT-62 PO; -REME15TA PO
--- NOTE | 2020-12-21 13:51 | REP ---
INDICATION: GROWTH GESTATIONAL DIABETES COMPARISON: None available. TECHNIQUE: Transabdominal obstetrical ultrasound with color Doppler evaluation. FINDINGS: Examination demonstrates a single live intrauterine in cephalic presentation. motion is identified by technologist. Placenta is noted anterior and grade 2 without evidence for placenta previa or abruption. Amniotic fluid volume is normal. Cervix measures 3.6 cm in length and appears closed.. Selected gestational age: 35 weeks 5 days with PARMJIT 01/20/2021. Gestational age by current measurements 34 weeks 4 days with PARMJIT 01/28/2021. FHR equals 134 beats per minute. BPD: 8.2 cm at 33 weeks 1 day HC: 30.3 cm at 33 weeks 4 days AC: 32.3 cm at 36 weeks 1 day FL: 6.8 cm at 34 weeks 5 days HL: 6.1 cm at 35 weeks 3 days HC/AC: 0.94 Estimated weight 2614 grams (35thpercentile). KARINA: 11.8 cm IMPRESSION: Single live advanced gestation in cephalic presentation demonstrating appropriate estimated weight and growth. No gross abnormalities are identified. <Electronically signed by Silver Daniel > 12/21/20 [id number]
== END ==
LOC: M WHC 13:05
PROVIDERS: ATTEND Obstetrics & Gynecology
DX: O24.419 Gestational diabetes mellitus in pregnancy, unspecified control (principal); Z3A.34 34 weeks gestation of pregnancy

== ENCOUNTER → 2020-12-27 | Outpatient (REF) | payer BC, OTHER ==
[~2020-12-27] MED LIST changes: +cannabis PO
== END ==
LOC: M SFHCWAGY 12:58
PROVIDERS: ATTEND Specialist
DX: Z34.03 Encounter for supervision of normal first pregnancy, third trimester (principal)

== ENCOUNTER 2021-01-17 12:11 | Inpatient (IN) | payer BC, OTHER ==
[~2021-01-17] VITALS: Ht 157.5 cm; Wt 86.7 kg
[2021-01-17] VITALS (9 sets, daily range): BP systolic 105–140; BP diastolic 58–88
[~2021-01-17 12:11] MED LIST changes: -cannabis PO
--- OUTSIDE RECORDS SUMMARY | 2021-01-17 12:15 | CCD | Continuity of Care Document ---
Author Author Aisha CARMEN POLYETHYLENE COMBINER Organization Unknown Address [address] [place] [address] Phone [phone] Problems Description No Information Available Social History Type Date Description Comments Sex Unknown ETOH Use Occasionally consumes alcohol Tobacco Use Start: Unknown Patient is a current smoker, smo kes some days Allergies, Adverse Reactions, Alerts Active Allergies Reaction Severity Comments Date Zyrtec 01/02/2020 Benadryl 01/02/2020 Medications Active Medications SIG Qnty Indications Ordering Provide r Date Proair HFA 108(90Base) mcg/Act Aer osol take 2 puffs by mouth every 4 hours as needed for shortness of breath, cough, wheezing - for upper respiratory infection 1inhaler J06.9 Luis A Carmen NP 10/04/2020 Mucinex 600mg Tablets ER 12HR take 1 tablet every 12 hours as needed for cough 30tabs J06.9 Luis A Carmen NP 10/04/2020 Tablets 1 by ema th every day Unknown History Medications Cefdinir 300mg Capsules one capsule by mouth twice a day x 10 days. 20caps J01.90 Octavia Mao MD 08/2020 - 10/04/2020 Fluticasone Propionate 50mcg/Act Suspension 2 sprays each nostril, daily, x 1 week, then discard. 16gm J01.90 Octavia Mao MD 05/29/2020 - 10/04/2020 Immunizations Description No Information Available Vital Signs Date Vital Result Comment 10/04/2020 1:20pm BP Systolic 113 mmHg BP Diastolic 74 mmHg Heart Rate 79 /min Body Temperature 97.7 F Respiratory Rate 16 /min O2 % BldC Oximetry 95 % 05/29/2020 12:05pm BP Systolic 126 mmHg BP Diastolic 82 mmHg Heart Rate 84 /min Body Temperature 97.6 F Respiratory Rate 16 /min O2 % BldC Oximetry 98 % Results Description No Information Available Procedures Date Code Description Status 10/04/2020 56316 Office/Outpatient Established Lo w MDM 20-29 Min Completed 05/29/2020 01305 Office/Outpatient Established Lo w MDM 20-29 Min Completed Medical Devices Description No Information Available Encounters Description No Information Available Assessments Date Code Description Provider 10/04/2020 J06.9 Acute upper respiratory infectio n, unspecified Luis A Carmen NP 05/29/2020 J01.90 Acute sinusitis, unspecified Alex Whelan NP Plan of Treatment 10/04/2020 - Luis A Carmen NP* J06.9 Acute upper respiratory infection, unspecified* New Medication:* Proair HFA 108(90 Base) mcg/Act - take 2 puffs by mouth every 4 hours as needed for shortness of breath, cough, wheezing - for upper respiratory infection * Mucinex 600 mg - take 1 tablet every 12 hours as needed for cough * Recommendations:* Pt well appearing, no respiratory distress Supportive care to include maintaining adequate hydration and warm fluids to thin secretions and soothe the respiratory mucosa. Discussed that common cold peaks usually on day 2-3 of illness and then gradually improves over the next 10-14 days. Saline drops for the nose as needed. Cool mist humidifier to add moisture to the air to loosen nasal secretions. May try honey 2.5 - 5 ml's straight or diluted in tea, juice, etc. if patient is over 1 years old. Go to the ER if signs and symptoms of cough worsen, difficulty breathing, wheezing, fever, vomiting etc. Return to the clinic for any concerns. Functional Status Description No Information Available Mental Status Description No Information Available Referrals Description No Information Available
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
--- OUTSIDE RECORDS SUMMARY | 2021-01-17 12:15 | CCD | Continuity of Care Document ---
Author Author Aisha MCGUIRE FRONT END MECHANIC Organization Unknown Address [address] [place] [address] Phone [phone] Problems Description No Information Available Social History Type Date Description Comments Sex Unknown ETOH Use Occasionally consumes alcohol Tobacco Use Start: Unknown Patient is a current smoker, smo kes some days Allergies, Adverse Reactions, Alerts Active Allergies Criticality Reaction | Severity Comments Date Zyrtec Unable to assess criticality 01/02/2020 Benadryl Unable to assess criticality 01/02/2020 Medications Active Medications SIG Qnty Indications Ordering Provide r Date Proair HFA 108(90Base) mcg/Act Aer osol take 2 puffs by mouth every 4 hours as needed for shortness of breath, cough, wheezing - for upper respiratory infection 1inhaler J06.9 Luis A Mcguire NP 10/04/2020 Mucinex 600mg Tablets ER 12HR take 1 tablet every 12 hours as needed for cough 30tabs J06.9 Luis A Mcguire NP 10/04/2020 Tablets 1 by ema th [...] O2 % BldC Oximetry 98 % Results Test Acquired Date Facility Test Result H/L Range Note Laboratory test finding 11/25/2020 [facility] Covid-19 <pending> Procedures Date Code Description Status 10/04/2020 65859 Office/Outpatient Established Lo w MDM 20-29 Min Completed 05/29/2020 12135 Office/Outpatient Established Lo w MDM 20-29 Min Completed Medical Devices Description No Information Available Encounters Description No Information Available Assessments Date Code Description Provider 10/04/2020 J06.9 Acute upper respiratory infectio n, unspecified Luis A Mcguire NP 05/29/2020 J01.90 Acute sinusitis, unspecified Mat johanna Whelan NP Plan of Treatment 10/04/2020 - Luis A Mcguire NP* J06.9 Acute upper respiratory infection, unspecified* [...] No Information Available Referrals Description No Information Available"
--- OUTSIDE RECORDS SUMMARY | 2021-01-17 12:15 | CCD | Continuity of Care Document ---
Author Author Aisha CARMEN WASH HELPER Organization Unknown Address [address] [place] [address] Phone [phone] Problems Description No Information Available Social History [...] Available Vital Signs Date Vital Result Comment 11/25/2020 5:42pm Heart Rate 88 /min Body Temperature 97.6 F O2 % BldC Oximetry 94 % 10/04/2020 1:20pm BP Systolic 113 mmHg BP Diastolic 74 mmHg Heart Rate 79 /min Body Temperature 97.7 F Respiratory Rate 16 /min O2 % BldC Oximetry 95 % Results Description No Information Available Procedures Date Code Description Status 10/04/2020 32839 Office/Outpatient Established Lo w MDM 20-29 Min Completed 05/29/2020 64407 Office/Outpatient Established Lo w MDM 20-29 Min Completed Medical Devices Description No Information Available Encounters Description No Information Available Assessments Date Code Description Provider 10/04/2020 J06.9 Acute upper respiratory infectio n, unspecified Luis A Carmen NP 05/29/2020 J01.90 Acute sinusitis, unspecified Alex Whelan NP Plan of Treatment 10/04/2020 - LuisA Carmen NP* J06.9 Acute upper respiratory infection, [...]
[2021-01-17] MEDS ORDERED: cannabis PO (12:47)
[2021-01-17] MEDS ORDERED: HOME MED LIST COMPLETE! XX SCH ×2 (12:50)
[2021-01-17] MEDS ORDERED: LACTATED RINGER'S 1000 ML IV STA (12:56)
[2021-01-17] MEDS ORDERED: TRANEXAMIC ACID INJection 1,000 MG in NS 100 ML IV PRN (13:00)
[2021-01-17] MEDS ORDERED: LIDOCAINE 1% MDV 20ML VIAL INFIL PRN (13:00)
[2021-01-17] MEDS ORDERED: METHYLERGONOVINE MALEATE 0.2 MG/ML VIAL (J2210) IM PRN (13:00)
[2021-01-17] MEDS ORDERED: CARBOPROST TROMETHAMINE 250 MCG/ML AMP IM PRN (13:00)
--- NOTE | 2021-01-17 13:23 | HPEPDOC ---
Obstetrical History & Physical General Date of Admission Jan 17, 2021 at 12:11 Primary Care Physician: MONICA CORTEZ CNM History of Present Illness 25 y.o. at . She initiated care at [facility] and then transferred care to [facility]. Her has been complicated by bipolar disorder, scholiosis, and history of LEEP. She reports good movement and denies LOF or vaginal bleeding. She is mallika every 5 minutes. Chief Complaint: Contractions, term Information Provided By: Patient Age: 25 : 2 Term: 1 Pre-term: 0 Abortions: 0 Livin Care Care: Good Care Past Medical History Past Obstetrical History : Past Obstetrical History: Multigravida Type of Delivery: Spontaneous Vaginal Del. 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 BREAST: . ABDOMEN: Gravid and non-tender to touch. FETUS: Is vertex (VTX) by sterile vaginal examination (SVE), fetus is vertex (VTX) by Dashawn. LUNGS: regular rate, breathing comfortably on room air. EXTREMITIES: bilateral pedal edema. Vital Signs/I&O Vital Signs Date Time Temp Pulse Resp B/P (MAP) Pulse Ox O2 Delivery O2 Flow Rate FiO2 01/17/21 12:40 97.4 73 18 119/74 (89) Laboratory Data 24H LABS Laboratory Tests 2 01/17/21 12:42: Serology Scanned Report Hepatitis B Testing Assessment/Plan Assessment IUP at ,Category 1 strip, early labor Plan Admit to labor and delivery. Diet: regular. Group B Streptococcus (GBS) negative. Labs and intravenous (IV) per unit protocol. Counseled on use of P. Lactated Ringers (LR): Bolus mL, then at mL/hr. Anticipate [normal spontaneous delivery ()]. C-S as appropriate. MONICA CORTEZ CNM Jan 17, 2021 13:23
[2021-01-17 14:11] LABS: HEMATOCRIT 36.1 % (36.0-47.0); HEMOGLOBIN 12.1 g/dl (12.0-15.5); MEAN CORPUSCULAR HGB CONC 33.5 g/dl (32.0-36.5); MEAN CORPUSCULAR VOLUME 86.6 fl (80.0-96.0); PLATELET COUNT, AUTOMATED 252 10^3/uL (150-450); RED BLOOD COUNT 4.17 10^6/uL (4.00-5.40); WHITE BLOOD COUNT 11.2 10^3/uL (4.0-10.0)
[2021-01-17] MEDS ORDERED: BUTORPHANOL 2 MG/ML INJ (J0595) IV ONE (16:10)
[2021-01-17] MEDS ORDERED: PROMETHAZINE INJ 25 MG/ML VIAL (J2550) IV ONE (16:10)
--- NOTE | 2021-01-17 16:24 | IPNPDOC ---
Obstetrical Progress Note Date of Service Jan 17, 2021 Subjective not coping well with contractions, complaining of back pain, requesting pain management Objective Vital Signs Date Time Temp Pulse Resp B/P (MAP) Pulse Ox O2 Delivery O2 Flow Rate FiO2 01/17/21 13:39 76 18 124/58 (80) 01/17/21 12:40 97.4 Assessment Heart Rate (FHR): 120 Variability: Moderate Accelerations: Positive Decelerations: None Heart Rate Tracing: Category I Tocometer Contractions: Yes Frequency: every 2-5 min. Strength: palpated as strong Sterile Vaginal Examination Dilation: 6 cm Effacement (%): 90% Station: 0 Cervical Consistency: Soft Cervical Position: Middle Postion/Presentation: Cephalic presentation Assessment and Plan Age: 25 : 5 Term: 1 Pre-term: 0 Abortions: 3 Livin Weeks & Days 39 4/7 Status: Reassuring Group B Streptococcus: Negative Anticipate: Vaginal Delivery Additional Comments Counselled on pain management options. Pt requesting IV Stadol and Phentermine. MONICA CORTEZ CNM Jan 17, 2021 16:24
--- NOTE | 2021-01-17 20:00 | IPNPDOC ---
Obstetrical Progress Note Date of Service Jan 17, 2021 Subjective Coping fairly with contractions. Objective Vital Signs Date Time Temp Pulse Resp B/P (MAP) Pulse Ox O2 Delivery O2 Flow Rate FiO2 01/17/21 18:29 51 18 115/62 (79) 01/17/21 17:20 97.6 Assessment Heart Rate (FHR): 125 Variability: Moderate Accelerations: Positive Decelerations: None Heart Rate Tracing: Category I Tocometer Contractions: Yes Frequency: every 2-5 min. Strength: palpated as strong Sterile Vaginal Examination Dilation: 6 cm Effacement (%): 100% Station: -1 Cervical Consistency: Soft Cervical Position: Middle Postion/Presentation: Cephalic presentation Assessment and Plan Age: 25 : 5 Term: 1 Pre-term: 0 Abortions: 3 Livin EGA at Admission: 39.4 Status: Reassuring Group B Streptococcus: Negative Anticipate: Vaginal Delivery Additional Comments AROM with consent, small amount of clear fluid. MONICA CORTEZ CNM Jan 17, 2021 20:00
[2021-01-17] MEDS ORDERED: FENTANYL 2MCG/ML ROPIVACAINE 0.2% IN 0.9% NACL 100ML IVBAG As Ordered ONE (20:32)
[2021-01-17] MEDS ORDERED: OXYTOCIN 30 UNITS IN 0.9% NaCl 500ML IV BAG (J2590) As Ordered ONE (20:37)
--- NOTE | 2021-01-17 21:33 | DNPDOC ---
[facility] Delivery Note Delivery Note DATE OF DELIVERY: 01/17/21 PREDELIVERY DIAGNOSIS: 39-4/7 weeks' gestation and labor. POST DELIVERY DIAGNOSIS: Delivered at 2057. PROCEDURE: Spontaneous vaginal delivery. TRAINING AND DEVELOPMENT PROFESSIONAL: Monica Herrera CNM and CHRISTIANE Gupta ANESTHESIA: none. ESTIMATED BLOOD LOSS: 300 mL. FINDINGS: 8 pounds 2 ounces; 3680 grams; male infant, Score 9/9. DELIVERY SUMMARY: Aisha is a 25-year-old 5 now para 2031 who was admitted to labor and delivery in active labor. She received IV Stadol and Phenergen for pain management. Aisha progressed to fully dilated at 2045 and pushed to a living male at 2057 in the OA position with restitution to LOT while on hands and knees. Anterior shoulder was delivered with gentle downward traction and the corpus followed. The baby was brought through her legs and placed [id number]. The cord was clamped and cut by the father of the baby after pulsation ceased. A 3-vessel cord was noted. The placenta was delivered at 2104 via [place] with intact membranes. Hemostasis was achieved with fundal massage. The cervix, vagina, and perineum was inspected and a first degree perineal laceration was noted and repaired with 3.[address]-1. Mom and dad named the baby Anne Marie. Counts of instruments and sponges are correct. Mom plans to breastfeed. Mom and baby are in stable condition MONICA HERRERA CNM Jan 17, 2021 21:33
[2021-01-17] MEDS ORDERED: IBUPROFEN 600MG TAB PO PRN (21:35)
[2021-01-17] MEDS ORDERED: METHYLERGONOVINE MALEATE 0.2 MG TAB PO PRN (21:35)
[2021-01-17] MEDS ORDERED: ACETAMINOPHEN TAB 650MG DOSE (2X325MG) PO PRN (21:35)
[2021-01-17] MEDS ORDERED: DOCUSATE SODIUM 100MG CAPSULE PO PRN (21:35)
[2021-01-17] MEDS ORDERED: ANUSOL HC CREAM 30GM TOP PRN (21:35)
[2021-01-17] MEDS ORDERED: MEASLES,MUMPS,RUBELLA VACCINE INJ (MMR-II) (90707) SC SCH (21:35)
[2021-01-17] MEDS ORDERED: MOM 30ML SUSPENSION UDC PO PRN (21:35)
[2021-01-17] MEDS ORDERED: RHOGAM 300 MCG (1500 IU) INJ (J2790) IM SCH (21:35)
[2021-01-17] MEDS ORDERED: DIBUCAINE 1% OINTMENT 30GM TOP PRN (21:35)
[2021-01-18] MEDS: IBUPROFEN 800 MG TAB PO PRN (04:37)
[2021-01-18 06:06] VITALS: BP 105/57
[2021-01-18] MEDS: PRENATAL VITAMINS CHEWABLE TABLET PO SCH (08:18)
[2021-01-18] MEDS: ACETAMINOPHEN 500 MG TAB PO PRN ×2 (08:18→16:21)
--- NOTE | 2021-01-18 14:22 | IPNPDOC ---
Progress Note Date of Service: Jan 18, 2021 Day#: 1 Progress Note SUBJECT: Status post . She has been ambulating, voiding spontaneously with out issue and tolerating regular diet. Lochia decreasing/minimal. Pain is well- controlled. Denies headache, visual changes, right upper quadrant pain, shortness breath or chest pain. OBJECTIVE: VITAL SIGNS: Within normal limits, afebrile. Alert and oriented times three. Abdomen: Fundus firm at U-2. Soft, NTTP. ASSESSMENT: Status post uncomplicated spontaneous vaginal delivery. Vitals within normal limits, afebrile, hemodynamically stable with no evidence of infection. PLAN: Discharge to home tomorrow. Tylenol and Motrin for pain. Routine instructions/precautions reviewed. Routine PP visit in 6 weeks in clinic. VS, I&O, 24H, Fishbone Vital Signs/I&O Vital Signs Date Time Temp Pulse Resp B/P (MAP) Pulse Ox O2 Delivery O2 Flow Rate FiO2 01/18/21 06:06 98.8 75 17 105/57 (73) 95 Room Air I&O- Last 24 Hours up to 6 AM 01/18/21 05:59 Intake Total 800 ml Output Total 800 ml Balance 0 ml LAUREN MOSS DO Jan 18, 2021 14:22
[2021-01-18 18:00] VITALS: BP 113/61
[2021-01-19] MEDS: IBUPROFEN 800 MG TAB PO PRN (04:06)
[2021-01-19 06:15] VITALS: BP 114/58
[2021-01-19] MEDS: ACETAMINOPHEN 500 MG TAB PO PRN (10:15)
[2021-01-19] MEDS: PRENATAL VITAMINS CHEWABLE TABLET PO SCH (10:15)
== END 2021-01-19 14:10 | disposition home or self-care (01) | DRG 560 ==
LOC: M LDI 12:11 → M OBS 22:54
PROVIDERS: ADMIT Advanced Practice Midwife; ATTEND Advanced Practice Midwife
PROC: 10E0XZZ Delivery of Products of Conception, External Approach (ICD-10-PCS; principal; 2021-01-17)
PROC: 10907ZC Drainage of Amniotic Fluid, Therapeutic from Products of Conception, Via Natural or Artificial Opening (ICD-10-PCS; 2021-01-17)
PROC: 0HQ9XZZ Repair Perineum Skin, External Approach (ICD-10-PCS; 2021-01-17)
DX: O24.420 Gestational diabetes mellitus in childbirth, diet controlled (principal); Z3A.39 39 weeks gestation of pregnancy; Z37.0 Single live birth; O70.0 First degree perineal laceration during delivery

== ENCOUNTER → 2022-05-29 | Outpatient (CLI) | payer BC ==
[~2022-05-29] MED LIST changes: +cannabis PO
== END ==
LOC: M WHC 12:07
PROVIDERS: ATTEND Specialist
DX: N60.09 Solitary cyst of unspecified breast (principal); N63.14 Unspecified lump in the right breast, lower inner quadrant

== ENCOUNTER → 2022-06-06 | Outpatient (CLI) | payer BC ==
[~2022-06-06] MED LIST changes: +**SFHN** LIDOCAINE 1% MDV 20ML VIAL ONE; +**SFHN** SODIUM BICARBONATE 8.4% 10MEQ 10ML VIAL ONE
[2022-06-06 10:54] VITALS: BP 90/64
== END ==
LOC: M WHCPRO 10:04
PROVIDERS: ATTEND Specialist
DX: N63.10 Unspecified lump in the right breast, unspecified quadrant (principal)
CPT/HCPCS: 19083; 77065; 88305; G0279

== ENCOUNTER → 2022-07-18 | Outpatient (REF) | payer BC, MEDICAID ==
[~2022-07-18] MED LIST changes: -**SFHN** LIDOCAINE 1% MDV 20ML VIAL ONE; -**SFHN** SODIUM BICARBONATE 8.4% 10MEQ 10ML VIAL ONE; +FLUT50SP17; -FLUTISP
== END ==
LOC: M SFHCWAGY 13:03
PROVIDERS: ATTEND Specialist
DX: Z12.4 Encounter for screening for malignant neoplasm of cervix (principal)
CPT/HCPCS: 87624; G0123

== ENCOUNTER → 2022-07-24 | Outpatient (CLI) | payer BC ==
[2022-07-24 14:59] LABS: FOLLICLE STIMULATING HORMONE 4.1 mIU/ML
[2022-07-24 15:00] LABS: ESTRADIOL 136.1 PG/ML; LUTEINIZING HORMONE 4.4 mIU/ML; PROLACTIN 4.47 NG/ML
[2022-07-24 15:05] LABS: PROGESTERONE 6.78 NG/ML
== END ==
LOC: M PLALAB 10:55
PROVIDERS: ATTEND Specialist
DX: N92.6 Irregular menstruation, unspecified (principal)

== ENCOUNTER 2022-10-23 01:50 | Emergency (ER) | payer BC ==
[~2022-10-23] VITALS: Ht 162.6 cm; Wt 65.9 kg
[2022-10-23 01:51] VITALS: BP 118/79; TEMP 97.1; O2SAT 97
== END 2022-10-23 05:34 | disposition home or self-care (01) ==
LOC: M ED 01:50
DX: M25.561 Pain in right knee (principal); Z88.8 Allergy status to other drugs, medicaments and biological substances

== ENCOUNTER → 2023-01-02 | Outpatient (CLI) | payer BC ==
[~2023-01-02] MED LIST changes: -MIRT-62 PO; +MIRT-88 PO
== END ==
LOC: M WHC 11:05
PROVIDERS: ATTEND Nurse Practitioner Women's Health
DX: D24.1 Benign neoplasm of right breast (principal)